=== PATIENT | female | born 1950 | race Caucasian/White ===

== ENCOUNTER → 2016-05-10 | Outpatient (CLI) | payer BC ==
[~2016-05-10] MED LIST: CHOL1000 PO; CINN1CAP2 PO; GLC/500 PO; LSN/10125 PO; MELO7.5T5 PO; MULT-190 PO; PRAV20TA PO
== END | disposition home or self-care (01) ==
LOC: C.PAPS 11:39
PROVIDERS: ATTEND Obstetrics & Gynecology
DX: Z12.4 Encounter for screening for malignant neoplasm of cervix (principal)

== ENCOUNTER → 2016-05-16 | Outpatient (CLI) | payer BC ==
[2016-05-16 12:36] LABS: AST/SGOT 12 U/L (15-37); BLOOD UREA NITROGEN 16 mg/dl (7-18); BUN/CREATININE RATIO 18.8 (10-20); CALCIUM 8.8 mg/dl (8.5-10.1); CARBON DIOXIDE 30 mmol/L (21-32); CHLORIDE 103 mmol/L (98-107); CHOLESTEROL 180 mg/dl (0-200); CREATININE 0.85 mg/dl (0.60-1.20); GLUCOSE 105 mg/dl (70-99); SODIUM 140 mmol/L (136-145)
[2016-05-16 12:38] LABS: ALB/GLOB RATIO 1.1 (0.9-2); ALKALINE PHOSPHATASE 64 U/L (45-117); ALT/SGPT 25 U/L (12-78); CHOLESTEROL/HDL RATIO 2.3; HDL CHOLESTEROL 77 mg/dl; LDL CHOLESTEROL CALCULATED 84 mg/dl; TRIGLYCERIDES 97 mg/dl (0-150); VERY LOW DENSITY LIPOPROT CALC 19 mg/dl
== END | disposition home or self-care (01) ==
LOC: C.LABBFT 08:24
PROVIDERS: ATTEND Nurse Practitioner
DX: E78.5 Hyperlipidemia, unspecified (principal)

== ENCOUNTER → 2016-09-23 | Outpatient (CLI) | payer BC ==
--- NOTE | 2016-09-24 13:53 | MAMMOGRAPHY REPORT ---
BILATERAL DIGITAL SCREENING MAMMOGRAM TOMOSYNTHESIS WITH CAD: 09/23/2016 CLINICAL HISTORY: Routine screening. Patient has no complaints. TECHNIQUE: Breast tomosynthesis in addition to standard 2D mammography was performed. Current study was also evaluated with a Computer Aided Detection (CAD) system. COMPARISON: Comparison is made to exams dated: 09/22/2015 mammogram, 09/20/2014 mammogram, 09/20/2013 mamm ogram, 03/19/2013 mammogram, 03/02/2013 mammogram, and 02/27/2012 mammogram - [facility]. BREAST COMPOSITION: The tissue of both breasts is heterogeneously dense, which may obscure small mas ses. FINDINGS: There is a possible 7 mm mass in the upper outer posterior right breast, near the fatglan dular interface, for which additional spot compression tomosynthesis views and possible ultrasound ar e recommended. A possible cluster of punctate microcalcifications in the 2:00 to 3:00 anterior right breast, for which additional spot magnification views are recommended. No other suspicious mass, architectural distortion or cluster of microcalcifications is seen bilstephaniaa janet. IMPRESSION: ACR BI-RADS CATEGORY 0: INCOMPLETE EVALUATION: NEED ADDITIONAL IMAGING EVALUATION The possible 7 mm mass in the upper outer posterior right breast, and possible cluster of microcalcif ications in the 2:00 to 3:00 anterior right breast need additional imaging evaluation. The patient will be called to schedule an appointment. Approximately 10% of breast cancers are not detected with mammography. A negative mammographic report should not delay biopsy if a clinically suggestive mass is present. Genie Winslow M.D. ay/:09/23/2016 16:37:22 Product Development Actuary: Meagan BECKFORD(Margaret)(M), [facility] letter sent: Addl Imaging 0 BI-RADS Code: ACR BI-RADS Category 0: Incomplete Evaluation: Need Additional Imaging Evaluation
== END | disposition home or self-care (01) ==
LOC: C.MAMM 13:58
PROVIDERS: ATTEND Obstetrics & Gynecology
DX: Z12.31 Encounter for screening mammogram for malignant neoplasm of breast (principal); R92.8 Other abnormal and inconclusive findings on diagnostic imaging of breast

== ENCOUNTER → 2016-10-02 | Outpatient (CLI) | payer BC ==
--- NOTE | 2016-10-02 15:44 | MAMMOGRAPHY REPORT ---
UNILATERAL RIGHT DIGITAL DIAGNOSTIC MAMMOGRAM TOMOSYNTHESIS: 10/02/2016 CLINICAL HISTORY: 66-year-old woman called back from screening mammography for possible clustered zana rocalcifications in the medial right breast, and a nodular asymmetry in the upper outer posterior rig ht breast. TECHNIQUE: Spot compression tomosynthesis CC and MLO views of the right breast; spot magnification CC and ML views of the right breast were obtained. COMPARISON: Comparison is made to exams dated: 09/23/2016 mammogram, 09/22/2015 mammogram, 05/25/2015 ul trasound, 05/25/2015 mammogram, 09/20/2014 mammogram, and 03/23/2014 mammogram - [facility]. BREAST COMPOSITION: The tissue of the right breast is heterogeneously dense, which may obscure small masses. FINDINGS: Spot magnification views of the right breast demonstrate a very faint cluster of amorphous microcalcifications in the upper inner anterior breast measuring approximately 16 x 12 x 6 mm. This appears new compared to prior mammograms and is indeterminate, warranting definitive characterizatio n with a stereotactic guided biopsy. On the spot magnification views both medially and laterally in the right breast, there are a few other scattered punctate microcalcifications. Another possible sma ll grouping of microcalcifications in the posterior lateral and superior breast, near a nodular asymm etry described on the screening mammogram. Therefore further evaluation with ultrasound was performe d in the right upper outer quadrant. The spot compression views obtained for this nodular asymmetry demonstrate partial effacement, and the area is actually less conspicuous compared to the screening m ammogram, particularly on the spot compression MLO view. Targeted ultrasound was performed in the right upper outer quadrant. In the 10:00 axis, 3 cm from th e nipple, there is a hypoechoic solid mass measuring 8.5 x 7.3 x 8.3 mm. A few internal punctate ref lectors are identified that may represent microcalcifications. However given the sonographic locatio n, it is unclear if this correlates with the original nodular asymmetry seen mammographically, althou gh no other solid or cystic mass was identified throughout the right upper outer quadrant on ultrasou nd. This mass is indeterminate, warranting further evaluation with an ultrasound-guided core needle biopsy. IMPRESSION: ACR BI-RADS CATEGORY 4B: INTERMEDIATE SUSPICION FOR MALIGNANCY 1. Right breast ultrasound guided core needle biopsy is recommended for an indeterminate solid 8.5 m m mass in the 10:00 axis. Correlation with postprocedure mammograms is recommended to assess for winsome mographicsonographic correlation with the nodular asymmetry. 2. Stereotactic guided biopsy is recommended for a 16 mm cluster of amorphous microcalcifications in the upper inner anterior right breast. 3. Pending pathology results, if there is no mammographicsonographic correlation with the nodular a symmetry in the upper outer posterior breast, additional MRI imaging may be needed. These results and recommendations were discussed with the patient at the time of the exam. She tenta tively scheduled the right breast biopsies prior to leaving our department. Approximately 10% of breast cancers are not detected with mammography. A negative mammographic report should not delay biopsy if a clinically suggestive mass is present. Genie Winslow M.D. ay/:10/02/2016 14:07:16 Medical Secretary: Marilyn Escalona, [facility] letter sent: Abnormal 4/5 BI-RADS Code: ACR BI-RADS Category 4B: Intermediate Suspicion For Malignancy
== END | disposition home or self-care (01) ==
LOC: C.MAMM 08:46
PROVIDERS: ATTEND Obstetrics & Gynecology
DX: R92.0 Mammographic microcalcification found on diagnostic imaging of breast (principal); N63 Unspecified lump in breast

== ENCOUNTER → 2016-10-10 | Outpatient (CLI) | payer BC ==
--- NOTE | 2016-10-10 14:36 | Discharge Instructions ---
Discharge Instructions Procedure Procedure Date: Oct 10, 2016. Reason for visit: Rt Calcs/ Rt Mass. Discharge Discharge Date: Oct 10, 2016. Discharge Diagnosis: post right breast stereotactic guided biopsy and ultrasound guided core biopsy Instructions Activity Recommendations: Additional Limitations (see below) Return to School/Work: no limitations Recommended Home Diet: No Limitations Provider Instructions: ACTIVITY RECOMMENDATIONS: * No lifting, pushing, pulling or exercising the affected side for three days. RETURN TO SCHOOL/WORK: * You may return to work/school after the procedure, but do not perform any strenuous activities for 24 to 48 hours. MEDICATIONS: * Tylenol (two 325 mg) every four to six hours if needed for mild pain (if not allergic to Tylenol), for the first 1-2 days. If still having pain at biopsy site may take ibuprofen days 3-on. DIET: * Resume previous diet. SPECIAL CARE INSTRUCTIONS: * Keep biopsy site dry for 24 hours. May shower after 24 hours, but do not soak (bathe) incision. * May remove Tegaderm (plastic patch) tomorrow AFTER showering. * Leave the steri-strips on for one week. Allow the steri-strips to fall off by themselves. If not off after one week, you may remove them. You may place a Bandaid crosswise over the strips, if desired. * Apply ice 10 minutes on and 10 minutes off as needed. * Wear a bra at bedtime to sleep more comfortably for 2-3 days. * Your referring physician should have the results after approximately 5 to 7 business days. * Call for unusual bleeding, fever, drainage, etc or if you have any questions call [phone] during normal business hours or after hours call Dr Winslow, . FOLLOW UP VISIT: Follow-up with Referring Physician as scheduled. Allergies Coded Allergies: Naproxen (Verified Allergy, Mild, RASH, 11/30/15) Tej Pace Recommendations: Call your doctor if: * Temperature above 101 degrees * Pain not relieved by pain medicine ordered * There is increased drainage or redness from any incision * You have any unanswered questions or concerns. Your Doctors Instructions noted above were prepared by provider Genie Winslow. Patient Signature Section: Patient Instructions Signature Page Sabiha Rosario Patient (or Guardian) Signature/Date: I have read and understand the instructions given to me by my caregivers. Caregiver/RN/Doctor Signature/Date: The above-named patient and/or guardian has received patient instructions on this date. + Original Patient Signature Page (only) stays with chart. Please make copy for patient.
--- NOTE | 2016-10-10 16:01 | MAMMOGRAPHY REPORT ---
UNILATERAL RIGHT DIGITAL DIAGNOSTIC MAMMOGRAM TOMOSYNTHESIS: 10/10/2016 CLINICAL HISTORY: Status post right breast stereotactic guided biopsy of faint clustered microcalcifi cations in the upper inner anterior breast, and ultrasound-guided core biopsy of a solid mass in the 10:00 breast. Please refer to reports from right breast ultrasound guided core biopsy and right breast stereotactic biopsy performed at the same time for full detail. IMPRESSION: POST PROCEDURE IMAGING FOR MARKER PLACEMENT Please refer to reports from right breast ultrasound guided core biopsy and right breast stereotactic biopsy performed at the same time for full detail. Approximately 10% of breast cancers are not detected with mammography. A negative mammographic report should not delay biopsy if a clinically suggestive mass is present. Genie Winslow M.D. ay/:10/10/2016 14:37:48 Nursing Agency Manager: Meagan KHAN)(Sj), [facility] BI-RADS Code: Post Procedure Imaging For Marker Placement
--- NOTE | 2016-10-11 08:09 | MAMMOGRAPHY REPORT ---
ULTRASOUND GUIDED BIOPSY RIGHT BREAST: 10/10/2016 CLINICAL HISTORY: Indeterminate hypoechoic solid mass in the 10:00 right breast, 3 cm from the nipple . Patient presents for ultrasound-guided core biopsy. COMPARISON: Comparison is made to exams dated: 10/02/2016 ultrasound, 10/02/2016 mammogram, 09/23/2016 mammogram, 09/22/2015 mammogram, 05/25/2015 ultrasound, and 05/25/2015 mammogram - [facility]. PATIENT CONSENT: The procedure, risks and benefits were discussed with the patient and informed conse nt was obtained both verbally and in writing. Specific risks to this procedure include: bleeding, in fection, puncture of adjacent structure, nontarget biopsy, sampling error, pain, metal allergy and me dication reaction. PROCEDURE DESCRIPTION: A time out was performed and the right breast was agreed as the site of biopsy . The skin was prepped and draped in the usual sterile fashion. The solid mass in the 10:00 breast wa s chosen as the target for biopsy. Subcutaneous and intraparenchymal 1% buffered lidocaine, with and without epinephrine, was administered as local anesthesia. A skin incision was made. Through the inc ision, 7 samples were taken with a 14 gauge Achieve biopsy device. A ribbon shaped metallic marker wa s placed at the biopsy site. Hemostasis was achieved after manual compression. The patient tolerated the procedure well and there was no immediate complication. [facility]. Post procedure right CC and ML 2-D and tomosynthesis images were obtained. A new ribbon-shaped metal lic biopsy marker is seen in the 10:00 middle one third of the right breast. It is difficult to appr eciate a corresponding mass on the mammograms, given the heterogeneous patchy glandular tissue. Neve rtheless, no significant postbiopsy hematoma is seen. A dumbbell-shaped marker is seen in the upper inner anterior right breast denoting the site of stereotactic biopsy performed just prior to the ultr asound guided biopsy. Neither biopsy marker clips align with the nodular asymmetry and few associate d calcifications in the upper outer far posterior right breast and pending pathology results, further workup will be needed regarding this nodular asymmetry and microcalcification. IMPRESSION: ULTRASOUND GUIDED BIOPSY 1. Status post ultrasound-guided core biopsy of an indeterminate solid mass in the 10:00 right breas t, with ribbon-shaped biopsy marker clip placed at the site. 2. The mass identified in the 10:00 right breast on ultrasound is not well seen mammographically. I t does not align with the nodular asymmetry and few associated calcification in the upper outer far p osterior right breast described on the screening mammogram report. This finding remains indeterminat e and further recommendations will be made (possibly MRI versus an additional biopsy) after pathology results are available. The patient will receive notification of the biopsy results from her referring physician. Genie Winslow M.D. ay/:10/10/2016 17:03:00 Telephone Station Repairer: Meagan KHAN)(Sj), [facility]
--- NOTE | 2016-10-11 08:09 | MAMMOGRAPHY REPORT ---
THIS REPORT HAS BEEN AMENDED. STEREOTACTIC GUIDED BIOPSY RIGHT BREAST: 10/10/2016 CLINICAL HISTORY: Faint clustered microcalcifications in the upper inner anterior right breast. Karyn ent presents for stereotactic biopsy. An ultrasound guided core biopsy was also performed during the same appointment for an indeterminate solid mass in the 10:00 right breast. COMPARISON: Comparison is made to exams dated: 10/02/2016 ultrasound, 10/02/2016 mammogram, 09/23/2016 mammogram, 09/22/2015 mammogram, 05/25/2015 mammogram, and 09/20/2014 mammogram - [facility]. PATIENT CONSENT: After explaining the risks, benefits and alternatives of the procedure to the galilea t, informed consent was obtained both verbally and in writing. Specific risks include: Bleeding, inf ection, puncture of adjacent structure, pain, nontarget biopsy, sampling error, metal allergy and med ication reaction. PROCEDURE DESCRIPTION: A time-out was performed and the right breast was confirmed as the site of bio psy. The patient was placed prone on the stereotactic biopsy table and the breast was placed in CC fr om above compression. A clay molder image was obtained that demonstrated the clustered microcalcifications in question. They are amenable to sterotactic biopsy. Then +15 and -15 stereo pair images were obt ained. The calcifications were targeted utilizing the coordinates obtained by the computer. The skin was prepped with Betadine. 1% Lidocaine with and without epinipherine was administered as local anes thesia. A small skin incision was made. Through the incision, the needle was inserted to the depth d etermined by the computer. 6 samples were obtained using a Auxmoneyiva 9-gauge vacuum-assisted biopsy device. The specimen radiograph demonstrated several solar sales representative and assessor microcalcifications, therefore, a metallic marker was placed at the biopsy site. There was no immediate complication. Hemostasis was achieved after several minutes of manual compression. The samples were sent to pathology in two appr opriately labeled containers, "with calcifications" and "without calcifications". All of the samples were obtained from the same single biopsy site. Post procedure right CC and ML 2-D and tomosynthesis images were obtained. A dumbbell-shaped marker is seen in the upper inner anterior right breast denoting the site of stereotactic biopsy. A ribbon- shaped clip is seen in the 10:00 middle one third of the right breast denoting the site of ultrasound -guided core biopsy. Neither biopsy marker clip aligns with the nodular asymmetry and few associated calcifications in the upper outer far posterior right breast and pending pathology results, further workup will be needed regarding this mammographic finding. IMPRESSION: STEREOTACTIC GUIDED BIOPSY 1. Status post stereotactic guided biopsy of a faint cluster of microcalcifications in the upper inn er anterior right breast. 2. An ultrasound core biopsy was performed at the same time in the 10:00 right breast of an indeterm inate solid mass. 3. Further recommendations will be made regarding a nodular asymmetry and associated microcalcificat ion in the upper outer far posterior right breast once pathology results are available. The patient will receive notification of the biopsy results from her referring physician. Genie Winslow M.D. ay/:10/10/2016 17:05:52 Senior Microstrategy Developer: Meagan KHAN)(Sj), [facility] AMENDMENT: 10/16/2016 Genie Winslow M.D. Pathology results from the ultrasound-guided core biopsy of a solid mass in the 10:00 right breast latvian elded invasive ductal carcinoma, Valerie grade 3 of 3. Estrogen and progesterone receptor negativ e, HER-2/tasneem indeterminate. The pathology results are concordant with the imaging appearance. 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 Pathology results are concordant with the imaging appearanc e from the stereotactic biopsy as well. In the comment section of the pathology report, both the inv asive carcinoma mass in the 10:00 axis and the in situ carcinomas in the upper inner anterior breast, which are located in different quadrants, show apocrine differentiation and significant necrosis sug gesting they are part of the same process. These findings are compatible with multicentric disease. Given the subtle nature of the patient's biopsy proven carcinoma in the 10:00 axis and the faint natu re of the microcalcifications as well as another nodular asymmetry in the upper outer posterior right breast which was not identified on ultrasound and remains suspicious given these pathology results, the patient may have more widespread disease then identified mammographically. Therefore, further ev aluation with a bilateral breast MRI is recommended to fully assess right breast extent of disease an d also to exclude the possibility of contralateral disease.
== END | disposition home or self-care (01) ==
LOC: C.MAMM 13:32
PROVIDERS: ATTEND Obstetrics & Gynecology
DX: R92.0 Mammographic microcalcification found on diagnostic imaging of breast (principal); N63 Unspecified lump in breast; D05.81 Other specified type of carcinoma in situ of right breast

== ENCOUNTER → 2016-11-05 | Outpatient (CLI) | payer BC ==
[~2016-11-05] MED LIST changes: +GADAVIST IV PRN
--- NOTE | 2016-11-06 16:02 | MAMMOGRAPHY REPORT ---
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 Patient presents to assess extent of disease and rule out contralateral d isease. COMPARISON: Comparison is made to exams dated: 10/10/2016 ultrasound biopsy, 10/10/2016 mammogram, 09/15 stereotactic biopsy, 10/02/2016 ultrasound, 10/02/2016 mammogram, and 09/23/2016 mammogram - [facility]. TECHNIQUE: Using a 1.5 Danyell magnet and dedicated breast coil, multisequence axial images were obtain ed through the breasts. After uneventful IV administration of 7.8 mL of Gadavist, dynamic multiphase contrast-enhanced axial images, and sagittal postcontrast were obtained. Temporal subtraction axial images and 3-D MIP images are provided. Everything was then reviewed on a 3-D workstation, i[employer]ing. FINDINGS: Right breast: There is no significant background parenchymal enhancement. There are 2 dominant enhan cing masses in the right breast upper outer quadrant, with clumped non-mass enhancement extending thr oughout the quadrant between the 2 masses. The first mass with irregular borders and mixed plateau a nd persisting kinetics is located in the 10:00 middle one third of the breast, 4 cm distal to the nip ple. It measures 12 x 9 x 12 mm and contains an internal biopsy marker clip. This denotes the site of the right 10:00 mass biopsy that yielded carcinoma. There is clumped non-mass enhancement extendi ng posterior to this mass for approximately 7 cm to the level of a second irregular mass with mixed p lateau and washout kinetics. This second slightly smaller mass measures 6 x 9 x 6 mm is located in t he 9:00 posterior breast, 11 cm distal to the nipple, and is highly suspicious for malignancy. This likely correlates with the original mammographic nodular asymmetry seen on the screening mammogram da hawa 09/23/2016, for which no sonographic correlate was identified. The clumped non-mass enhancement which extends between the 2 masses measures approximately 7 cm in AP by 4.5 cm in craniocaudal dimens ion and occupies most of the middle to posterior right upper outer quadrant. This is suspicious for DCIS. There are other discrete areas of clumped non-mass enhancement within the right breast, in the central versus 6:00 middle one third of the breast measuring 23 x 14 x 12 mm (sagittal page 94/128, axial page 77/1:30), and minimal clumped non-mass enhancement surrounding a second metallic biopsy ma rker clip located in the 2:00 anterior right breast, denoting the site of the stereotactic guided bio psy which yielded DCIS. These findings are compatible with multicentric disease. There is hyperinte nse T2 signal within the skin at the site of the stereotactic biopsy, likely representing postbiopsy change. There is no other focal skin abnormality or skin thickening. The retromammary fat is intact . There are a few more lymph nodes in the right axilla when compared to the left, but they maintain a normal morphology and have cortical thicknesses within the upper limits of normal, approximately 3 mm. No definite suspicious right axillary lymphadenopathy. No suspicious internal mammary or subpec stacy lymphadenopathy. Left breast: No significant background parenchymal enhancement. No suspicious enhancing mass, no non -mass enhancement or suspicious kinetics identified in the left breast. No skin thickening or nipple retraction. The retromammary fat is intact. No suspicious left axillary lymphadenopathy. Incidental note is made of a nonenhancing oval T2 hyperintense 11 x 6 mm cyst in the anterior aspect of the visualized liver. IMPRESSION: ACR BI-RADS CATEGORY 6: KNOWN BIOPSY PROVEN MALIGNANCY 1. MRI evidence of multicentric disease within the right breast. There are 2 dominant irregular enh ancing masses within the 10:00 middle one third and 9:00 posterior breast, measuring 12 and 9 mm, of which the biopsied mass in the 10:00 axis represents biopsy-proven carcinoma. Multiple areas of clum ped non-mass enhancement mostly concentrated between the 2 dominant masses in the upper outer quadran t, but also in other areas of the breast including the 2:00 anterior axis and central/6:00 breast, barron spicious for multicentric DCIS, given that DCIS was identified at the biopsy site in the 2:00 anterio r aspect. 2. No nipple retraction, focal skin thickening/enhancement to suggest skin involvement or pectoralis muscle involvement is identified. 3. No suspicious findings or evidence of malignancy in the left breast. 4. Slightly increased number of right axillary lymph nodes compared to the left, which are less than a centimeter in size and maintain cortices within the range of normal for thickness. No definitive MRI evidence of right axillary lymphadenopathy. The patient will receive written notification of the results. Genie Winslow M.D. ay/:11/05/2016 22:16:28 Paper Stripper: underwater hunter, [facility] letter sent: Birad 6 BI-RADS Code: ACR BI-RADS Category 6: Known Biopsy Proven Malignancy
== END | disposition home or self-care (01) ==
LOC: C.MRI 13:12
PROVIDERS: ATTEND Surgery
DX: C50.811 Malignant neoplasm of overlapping sites of right female breast (principal)

== ENCOUNTER → 2016-11-05 | Outpatient (CLI) | payer BC ==
[~2016-11-05] MED LIST changes: -GADAVIST IV PRN
[2016-11-05 12:07] LABS: HEMATOCRIT 38.3 % (37-47); MEAN CELL VOLUME 85.3 fL (80-100); MEAN CORPUSCULAR HGB CONC 33.9 g/dl (32-36); MEAN PLATELET VOLUME 11.4 fL (7.4-10.4); PLATELET COUNT 170 K/uL (130-400); RED BLOOD COUNT 4.49 M/uL (4.2-5.4); WHITE BLOOD COUNT 6.21 K/uL (4.8-10.8)
[2016-11-05 12:15] LABS: BLOOD UREA NITROGEN 15 mg/dl (7-18); BUN/CREATININE RATIO 20.3 (10-20); CALCIUM 9.1 mg/dl (8.5-10.1); CARBON DIOXIDE 29 mmol/L (21-32); CHLORIDE 103 mmol/L (98-107); CREATININE 0.76 mg/dl (0.60-1.20); GLUCOSE 92 mg/dl (70-99); POTASSIUM 4.1 mmol/L (3.5-5.1); SODIUM 138 mmol/L (136-145)
== END | disposition home or self-care (01) ==
LOC: C.CPL 10:50
PROVIDERS: ATTEND Surgery
DX: Z01.810 Encounter for preprocedural cardiovascular examination (principal); C50.811 Malignant neoplasm of overlapping sites of right female breast

== ENCOUNTER → 2016-11-14 | Outpatient (CLI) | payer BC ==
[2016-11-14 12:05] LABS: MEAN CELL VOLUME 86.8 fL (80-100); MEAN CORPUSCULAR HGB CONC 33.4 g/dl (32-36); PLATELET COUNT 155 K/uL (130-400); RED BLOOD COUNT 4.38 M/uL (4.2-5.4); WHITE BLOOD COUNT 5.55 K/uL (4.8-10.8)
[2016-11-14 12:06] LABS: MEAN PLATELET VOLUME 11.5 fL (7.4-10.4)
[2016-11-14 12:19] LABS: ALT/SGPT 22 U/L (12-78); BLOOD UREA NITROGEN 17 mg/dl (7-18); BUN/CREATININE RATIO 21.1 (10-20); CALCIUM 9.2 mg/dl (8.5-10.1); CARBON DIOXIDE 31 mmol/L (21-32); CHLORIDE 104 mmol/L (98-107); CHOLESTEROL 173 mg/dl (0-200); GLUCOSE 96 mg/dl (70-99); POTASSIUM 3.9 mmol/L (3.5-5.1); SODIUM 138 mmol/L (136-145)
[2016-11-14 12:22] LABS: ALB/GLOB RATIO 1.1 (0.9-2); ALKALINE PHOSPHATASE 61 U/L (45-117); AST/SGOT 15 U/L (15-37); CHOLESTEROL/HDL RATIO 2.2; HDL CHOLESTEROL 78 mg/dl; LDL CHOLESTEROL CALCULATED 81 mg/dl; TRIGLYCERIDES 71 mg/dl (0-150); VERY LOW DENSITY LIPOPROT CALC 14 mg/dl
[2016-11-14 13:05] LABS: ESTIMATED AVERAGE GLUCOSE 134 mg/dl; HA1C FLAG Normal (Normal)
== END | disposition home or self-care (01) ==
LOC: C.LABBFT 07:29
PROVIDERS: ATTEND Nurse Practitioner
DX: R73.01 Impaired fasting glucose (principal); M85.80 Other specified disorders of bone density and structure, unspecified site; I10 Essential (primary) hypertension

== ENCOUNTER → 2017-05-14 | Outpatient (CLI) | payer BC | END | disposition home or self-care (01) | LOC: C.PAPS 12:05 | PROVIDERS: ATTEND Family Medicine | DX: Z01.419 Encounter for gynecological examination (general) (routine) without abnormal findings (principal) ==

== ENCOUNTER → 2017-06-19 | Outpatient (CLI) | payer BC | END | disposition home or self-care (01) | LOC: C.LABBFT 07:38 | PROVIDERS: ATTEND Nurse Practitioner | DX: M85.80 Other specified disorders of bone density and structure, unspecified site (principal); R73.01 Impaired fasting glucose ==

== ENCOUNTER → 2017-10-23 | Outpatient (CLI) | payer BC ==
--- NOTE | 2017-10-23 12:04 | DIAGNOSTIC IMAGING REPORT ---
ADDENDUM History: Question palpable abnormality within the right neck Electronically signed by: Matthew Arenas M.D. 10/23/2017 12:07 PM Dictated Date/Time: 10/23/2017 12:06 PM ORIGINAL REPORT NECK ULTRASOUND HISTORY: Right-sided neck pain. COMPARISON: None. FINDINGS: No masses or fluid collections within the right side of the neck. No cervical lymphadenopathy identified on the right. The thyroid gland within normal limits. IMPRESSION: No sonographic abnormality within the right neck. Electronically signed by: Matthew Arenas M.D. 10/23/2017 12:02 PM Dictated Date/Time: 10/23/2017 12:01 PM
== END | disposition home or self-care (01) ==
LOC: C.ULTR 09:53
PROVIDERS: ATTEND Physician Assistant
DX: C50.411 Malignant neoplasm of upper-outer quadrant of right female breast (principal); Z17.1 Estrogen receptor negative status [ER-]; R59.0 Localized enlarged lymph nodes

== ENCOUNTER 2021-09-14 08:17 | Observation (INO) ==
--- NOTE | 2021-08-17 12:59 | PAT Medication Instructions ---
Medication Instructions Date of Service August 17, 2021 Home Medications Medication Instructions Recorded blood sugar diagnostic (OneTouch #100 ea 12/03/18 Ultra Blue Test Strip) azelastine 137 mcg (0.1 %) nasal 2 spray INTRANASAL DAILY #30 ml 04/14/20 spray aerosol lisinopril 10 1 tab PO QAM #90 tab 05/23/21 mg-hydrochlorothiazide 12.5 mg tablet metformin 500 mg tablet 500 mg PO BID #180 tab 05/23/21 pravastatin 20 mg tablet 20 mg PO QPM #90 tab 05/23/21 Wheeled Walker #1 ea 07/11/21 cholecalciferol (vitamin D3) 25 mcg (1,000 unit) capsule 1,000 units PO QAM cinnamon bark 500 mg capsule 500 mg PO QAM fluticasone propionate 50 mcg/actuation nasal spray,suspension 2 sprays INTRANASAL DAILY PRN vit C,E,zinc,copper-[id number] 250 mg-lutein 5 mg-zeaxanthin 1 mg capsule (Ocuvite Adult 50 Plus) 1 cap PO BID dextran 70-hypromellose eye drops in a dropperette (Artificial Tears (PF)) 1 drp OPR UD PRN multivitamin 1 tab PO QAM azelastine 137 mcg (0.1 %) nasal spray aerosol 2 spray INTRANASAL DAILY lisinopril 10 mg-hydrochlorothiazide 12.5 mg tablet 1 tab PO QAM metformin 500 mg tablet 500 mg PO BID pravastatin 20 mg tablet 20 mg PO QPM diphenhydramine HCl 25 mg tablet (Benadryl Allergy) 25 mg PO UD PRN metoprolol succinate 50 mg tablet,extended release 24 hr 50 mg PO QAM multivitamin with minerals (Hair,Skin and Nails) 1 tab PO QAM STOP taking 2 weeks before surgery cinnamon bark 500 mg capsule 500 mg PO QAM vit C,E,zinc,copper-[id number] 250 mg-lutein 5 mg-zeaxanthin 1 mg capsule (Ocuvite Adult 50 Plus) 1 cap PO BID multivitamin with minerals (Hair,Skin and Nails) 1 tab PO QAM DO NOT take the morning of surgery cholecalciferol (vitamin D3) 25 mcg (1,000 unit) capsule 1,000 units PO QAM multivitamin 1 tab PO QAM lisinopril 10 mg-hydrochlorothiazide 12.5 mg tablet 1 tab PO QAM metformin 500 mg tablet 500 mg PO BID diphenhydramine HCl 25 mg tablet (Benadryl Allergy) 25 mg PO UD PRN (if needed) Take morning of surgery With a small sip of water, OTHERWISE NOTHING TO EAT OR DRINK AFTER MIDNIGHT: fluticasone propionate 50 mcg/actuation nasal spray,suspension 2 sprays INTRANASAL DAILY PRN (if needed) dextran 70-hypromellose eye drops in a dropperette (Artificial Tears (PF)) 1 drp OPR UD PRN (if needed) azelastine 137 mcg (0.1 %) nasal spray aerosol 2 spray INTRANASAL DAILY metoprolol succinate 50 mg tablet,extended release 24 hr 50 mg PO QAM Take evening before surgery dextran 70-hypromellose eye drops in a dropperette (Artificial Tears (PF)) 1 drp OPR UD PRN (if needed) metformin 500 mg tablet 500 mg PO BID pravastatin 20 mg tablet 20 mg PO QPM diphenhydramine HCl 25 mg tablet (Benadryl Allergy) 25 mg PO UD PRN (if needed) Other Notes If you have any questions please call us at [phone] or [phone] or [phone] or [phone]
--- NOTE | 2021-08-20 08:26 | Anesthesiology Consultation ---
Date of Service August 20, 2021 Assessment & Plan (1) Encounter for pre-operative examination: - check BSG am DOS. - Case discussed with Dr. Montaño including detailed discussion of holter monitor report and he advised patient is acceptable to proceed with surgery and does not need additional evaluation or testing. - cardio 05/17/21 [place]: "...Frequent unifocal PVCs: With initial treatment of her PVCs with beta-blockade she had symptomatic improvement, although she still has them and they are bothersome to her. We do have a Holter monitor that was just taken off today which will quantify them but based on her symptoms and her electrocardiogram from today she still has frequent symptomatic PVCs...believe these are from the right ventricular outflow tract and we could consider ablation but she is on very low-dose beta-blockade and is willing to go up on the dose. I am going to increase the dose to 50 mg daily. Hypertension: Her blood pressure has been well controlled on her current regimen...follow-up in about 6 months..." - COVID screening: Per assessment on 08/20/2021: Travel screen negative, no known COVID-19 positive contacts or current COVID-19 related symptoms in past 2 weeks. Pt vaccinated. Surgeon arranging preop COVID testing, scheduled 09/12/2021. Awaiting results. Chart Review Chart Review: Acceptable Risk for Surgery and Patient seen in Pre Admission Te sting Teaching & Discussion Pre-Anesthesia Teaching/Discussion Notes: Instructed NPO after midnight before surgery, except medications with 15 cc of water. Medication instructions provided according to the PAT guidelines. History Surgery Operation Date: 09/14/21 08:50 Proposed Procedures p Right Total Knee Arthroplasty - Lamin Orlando DO Height/Weight Height: 5 ft 8 in Weight: 84.5 kg Allergies Allergy/AdvReac Type Severity Reaction Status Date / Time naproxen Allergy Mild RASH Verified 08/16/21 11:28 Medications Home Medications Medication Instructions Recorded Confirmed Last Taken cholecalciferol (vitamin D3) 25 1,000 units PO QAM cap 11/11/18 08/16/21 12/20/18 mcg (1,000 unit) capsule cinnamon bark 500 mg capsule 500 mg PO QAM cap 12/01/18 08/16/21 12/20/18 fluticasone propionate 50 2 sprays INTRANASAL DAILY PRN gm 12/01/18 08/16/21 12/20/18 mcg/actuation nasal spray,suspension vit C,E,zinc,copper-[id number] 250 1 cap PO BID 12/01/18 08/16/21 12/20/18 mg-lutein 5 mg-zeaxanthin 1 mg capsule (Ocuvite Adult 50 Plus) blood sugar diagnostic (OneTouch #100 ea 12/03/18 07/24/21 Unknown Ultra Blue Test Strip) dextran 70-hypromellose eye drops 1 drp OPR UD PRN 12/08/18 08/16/21 12/20/18 in a dropperette (Artificial Tears (PF)) multivitamin 1 tab PO QAM 12/08/18 08/16/21 12/20/18 azelastine 137 mcg (0.1 %) nasal 2 spray INTRANASAL DAILY #30 ml 04/14/20 07/24/21 Unknown spray aerosol lisinopril 10 1 tab PO QAM #90 tab 05/23/21 08/16/21 Unknown mg-hydrochlorothiazide 12.5 mg tablet metformin 500 mg tablet 500 mg PO BID #180 tab 05/23/21 08/16/21 Unknown pravastatin 20 mg tablet 20 mg PO QPM #90 tab 05/23/21 08/16/21 Unknown Wheeled Walker #1 ea 07/11/21 07/24/21 Unknown diphenhydramine HCl 25 mg tablet 25 mg PO UD PRN 08/16/21 08/16/21 Unknown (Benadryl Allergy) metoprolol succinate 50 mg 50 mg PO QAM 08/16/21 08/16/21 Unknown tablet,extended release 24 hr multivitamin with minerals 1 tab PO QAM 08/16/21 08/16/21 Unknown (Hair,Skin and Nails) Past Medical History Medical History (Updated 08/21/21 @ 08:34 by Delia Santos PA-C) Diabetes mellitus, type 2 NIDDM Frequent PVCs Reason for metoprolol, chronic palpitations, denies change or worsening Hearing deficit Right ear History of malignant neoplasm of right breast s/p surgery + chemo (2016)-limb restriction of right upper extremity Hyperlipidemia Hypertension controlled, stable per pt Limb alert care status right upper extremity Macular pucker, left eye Rosacea Skin cancer BCC Patient denies h/o stroke, seizures, heart attack, heart failure, blood clots or blood transfusions. Exercise / Class Metabolic Activity II 4-5 Yardwork/Stairs/Walk up hill (denies CP or SOB with 1 FOS) Past Family History Family History Aunt Stroke maternal Diabetes maternal Father Lung cancer Family/Other Asthma maternal cousin FHx: deafness or hearing loss Environmental allergies Sinus disorder Hypertension Grandmother No problems noted. Mother Hypertension Myocardial infarction Unknown No problems noted. Grandmother (Maternal) Stroke Denies family history of Ovarian cancer Prostate cancer Breast cancer Colorectal cancer Past Surgical History Surgical History (Updated 08/20/21 @ 08:32 by Delia Santos PA-C) History of breast biopsy History of colonoscopy History of dilatation and curettage History of placement of ear tubes Right myringotomy tube (12/21/18): [place] [facility] [place] No issues noted per post-op anesthesia progress note. History of removal of Port-a-Cath 2016 History of surgical removal of skin lesion History of tonsillectomy and adenoidectomy S/P right mastectomy with lymph node removal [place] teeth extracted Past Anesthesia History Other (slow to wake after mastectomy; several family members slow to wake-went home same day) History of PONV No Hx of PONV and No Hx of Motion Sickness Social History Smoking Status: Never smoker Do You Dip or Chew Tobacco: No Hx Alcohol Use: Yes (on holidays, very rare) Alcohol type: wine alcohol intake frequency: holidays/special occasions only Hx Substance Use: No substance use type: does not use Review of Systems Snoring, denies witnessed apneas or sleep studies. Occasional reflux, managed with OTC antacid prn. Chronic, denies change or worsening. Occasional intermittent non-productive cough when experiencing sinus drainage. Patient denies chest pain, shortness of breath, dyspnea on exertion, fever or chills. Physical Exam Vital Signs Vitals BP 125/62 P 69 TEMP 98.6 SP02 97% on RA RESP 17 Physical Full cervical extension range of motion without pain TMD 3.5 finger breaths Mallampati Score 1 Dentition: intact, several caps-none in front, chipped front lower tooth; denies loose teeth, implants or bridges Lungs: normal respiratory effort. Clear throughout to auscultation, no adventitious breath sounds Cardiac: regular rate and rhythm, no murmurs noted Carotid arteries: negative bruit bilat Lab Results Anesthesia Preop Results Results Anesthesia Widget: WBC 7.68 K/uL (4.8-10.8) 08/20/21 Hgb 12.9 g/dL (12.0-16.0) 08/20/21 Hct 38.0 % (37-47) 08/20/21 Plt 195 K/uL (130-400) 08/20/21 Na 136 mmol/L (136-145) 08/20/21 K 4.6 mmol/L (3.5-5.1) 08/20/21 Cl 99 mmol/L (98-107) 08/20/21 CO2 31 mmol/L (21-32) 08/20/21 BUN 20 mg/dl (6-23) 08/20/21 Creat 0.90 mg/dl (0.6-1.2) 08/20/21 Glucose Level 111 mg/dl (70-99(Fasting)) H 08/20/21 PT 10.1 Seconds (9.0-12.0) 08/20/21 PTT 25.7 Seconds (21.0-31.0) 08/20/21 INR 0.9 (0.9-1.1) 08/20/21 HA1c 6.6 % (4.5-5.6) H 08/20/21 Blood Type A Positive 08/20/21 Antibody Screen NEGATIVE 08/20/21 Testing Electrocardiogram Date: 08/20/21 NSR, rate 65 bpm Chest X-Ray Date: 08/20/21 The cardiac silhouette is moderately enlarged. No pneumothorax, pleural effusion, airspace consolidation or overt pulmonary edema. Hyperinflation with diaphragmatic flattening. Mid thoracic dextroscoliosis. Degenerative changes of the shoulders and spine. IMPRESSION: Cardiomegaly without acute process Echocardiogram Date: 04/21/20 EF 65-70% No regional wall motion abnormalities No LVH Mildly dilated RV Mild RA dilation Mild mitral regurgitation Mild to moderate tricuspid regurgitation Type 2 diastolic dysfunction Other Testing Holter monitor 05/16/21 Sinus rhythm, HR min 54 bpm, av 67 bpm, max 110 bpm Isolated APDs and couplets, single nonsustained episode of VT noted Frequent VPDs and couplets, single nonsustained episode of SVT noted Ventricular arrhythmia comprised 18% of recorded beats
--- NOTE | 2021-09-13 12:09 | History & Physical Report ---
Date of Service September 13, 2021 Assessment & Plan (1) Osteoarthritis of right knee: We will proceed with a right total knee arthroplasty. Postoperatively she will be started on aspirin for DVT prophylaxis and kept overnight in the hospital for postoperative medical management. She plans to use energy physical therapy upon discharge. History of Present Illness Chief Complaint: Osteoarthritis of the right knee. Primary Care Provider: BRODERICK Hazel Sabiha is a pleasant 71-year-old female who I am been treating for bilateral knee pain for years. X-rays have been diagnostic for advanced osteoarthritis of the right knee. I have been giving her intraarticular injections. Unfortunately, the injections are not helping as much anymore. Her right knee pain is becoming worse. She is struggling more and more with the right knee. After failing conservative treatment, she has elected proceed with a right total knee arthroplasty. Allergies Allergy/AdvReac Type Severity Reaction Status Date / Time naproxen Allergy Mild RASH Verified 08/16/21 11:28 Home Medications Medication Instructions Recorded Confirmed Type cholecalciferol (vitamin D3) 25 1,000 units PO QAM cap 11/11/18 08/16/21 History mcg (1,000 unit) capsule cinnamon bark 500 mg capsule 500 mg PO QAM cap 12/01/18 08/16/21 History fluticasone propionate 50 2 sprays INTRANASAL DAILY PRN gm 12/01/18 08/16/21 History mcg/actuation nasal spray,suspension vit C,E,zinc,copper-[id number] 250 1 cap PO BID 12/01/18 08/16/21 History mg-lutein 5 mg-zeaxanthin 1 mg capsule (Ocuvite Adult 50 Plus) blood sugar diagnostic (OneTouch #100 ea 12/03/18 07/24/21 Rx Ultra Blue Test Strip) dextran 70-hypromellose eye drops 1 drp OPR UD PRN 12/08/18 08/16/21 History in a dropperette (Artificial Tears (PF)) multivitamin 1 tab PO QAM 12/08/18 08/16/21 History azelastine 137 mcg (0.1 %) nasal 2 spray INTRANASAL DAILY #30 ml 04/14/20 07/24/21 Rx spray aerosol lisinopril 10 1 tab PO QAM #90 tab 05/23/21 08/16/21 Rx mg-hydrochlorothiazide 12.5 mg tablet metformin 500 mg tablet 500 mg PO BID #180 tab 05/23/21 08/16/21 Rx pravastatin 20 mg tablet 20 mg PO QPM #90 tab 05/23/21 08/16/21 Rx Wheeled Walker #1 ea 07/11/21 07/24/21 Rx diphenhydramine HCl 25 mg tablet 25 mg PO UD PRN 08/16/21 08/16/21 History (Benadryl Allergy) metoprolol succinate 50 mg 50 mg PO QAM 08/16/21 08/16/21 History tablet,extended release 24 hr multivitamin with minerals 1 tab PO QAM 08/16/21 08/16/21 History (Hair,Skin and Nails) Past Med/Surg History Medical History Diabetes mellitus, type 2 NIDDM Frequent PVCs Reason for metoprolol, chronic palpitations, denies change or worsening Hearing deficit Right ear History of malignant neoplasm of right breast s/p surgery + chemo (2016)-limb restriction of right upper extremity Hyperlipidemia Hypertension controlled, stable per pt Limb alert care status right upper extremity Macular pucker, left eye Rosacea Skin cancer BCC Surgical History History of breast biopsy History of colonoscopy History of dilatation and curettage History of placement of ear tubes Right myringotomy tube (12/21/18): [place] [facility] [place] No issues noted per post-op anesthesia progress note. History of removal of Port-a-Cath 2016 History of surgical removal of skin lesion History of tonsillectomy and adenoidectomy S/P right mastectomy with lymph node removal [place] teeth extracted Family History Aunt Stroke maternal Diabetes maternal Father Lung cancer Family/Other Asthma maternal cousin FHx: deafness or hearing loss Environmental allergies Sinus disorder Hypertension Grandmother No problems noted. Mother Hypertension Myocardial infarction Unknown No problems noted. 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 Physical Exam On physical examination the right knee, she has a slight valgus deformity. She has tenderness palpation of the distal lateral femoral condyle and over the lateral joint line.. Constitutional WD/WN, vitals as above Eyes PERRL, conjunctivae normal, anicteric sclerae ENMT external ear and nose normal, oropharynx normal Neck trachea midline, no thyromegaly Respiratory normal respiratory effort Cardiovascular RRR, no murmur, no edema Gastrointestinal (Abdomen) normal bowel sounds, soft, nontender, no hepatosplenomegaly Psychiatric A+Ox3, euthymic affect Results & Data Results & Data Laboratory Results . Diagnostic Findings X-rays of the right knee do show advanced osteoarthritis with joint space narrowing mostly involving the lateral compartment. PG Care Time/CCT Total # of Minutes Spent Total Time Spent with Patient: Total time spent is greater than 50% in coordination of care (as documented) at patient's floor/unit and/or counseling patient: Coding Level of Care Code None Diagnoses Osteoarthritis of right knee M17.11
[~2021-09-14 08:17] MED LIST changes: +ACETAMINOPHEN 500 MG TAB PO SCH; +BUPIVACAINE 0.25% 30 ML VIAL ONE; +BUPIVACAINE 0.5 % 5 MG/1 ML PF 10ML VIAL ONE; -CHOL1000 PO; -CINN1CAP2 PO; +DEXAMETHASONE SOD INJ 4 MG/ML VIAL ONE; +EPINEPHrine INJ 1 MG/ML AMP ONE; +FAMOTIDINE 20 MG TAB PO SCH; +GABAPENTIN 300 MG CAP PO SCH; -GLC/500 PO; +Ketorolac (*for OR use only*) 30 MG, dexAMETHasone 4 MG, KETAMINE HCL (**OR use only) 1... INFIL SCH; +LR 500ML BOLUS, THEN 15ML/HR IV SCH; +LR 60ML/HR IV SCH; -LSN/10125 PO; -MELO7.5T5 PO; -MULT-190 PO; -PRAV20TA PO; +TRANEXAMIC ACID 1,000 MG **IV Intra-op IV SCH; +TRANEXAMIC ACID 1,000 MG **IV Pre-op IV SCH; +ceFAZolin 2000MG 2,000 MG/15 ML SYR IV SCH; +dexAMETHasone 4 MG TAB PO SCH
--- NOTE | 2021-09-14 08:37 | History & Physical Bridge Note ---
Date of Service September 14, 2021 History & Physical Bridge Note I have examined the patient, reviewed the History & Physical and in the interval since the performance of the History & Physical I have noted the following changes of clinical significance: no changes noted
[2021-09-14] MEDS ORDERED: fentaNYL citrate 100 MCG/2 ML VIAL ONE (10:07)
[2021-09-14] MEDS ORDERED: MIDAZOLAM HCL 1 MG/ML 2ML VIAL ONE (10:07)
[2021-09-14] MEDS ORDERED: ORTHO JOINT ANESTHETIC ONE (10:48)
[2021-09-14] MEDS ORDERED: ATROPINE SULFATE 0.1 MG/ML 10ML SYR IV PRN (11:09)
[2021-09-14] MEDS ORDERED: fentaNYL citrate 100 MCG/2 ML VIAL IV PRN (11:09)
[2021-09-14] MEDS ORDERED: ONDANSETRON INJ 2 MG/ML 2 ML VIAL IV PRN ×2 (11:09→13:34)
[2021-09-14] MEDS ORDERED: ePHEDrine sulfate 50 MG/ML AMP IV PRN (11:09)
[2021-09-14] MEDS ORDERED: PROPOFOL IV EMULSION 10 MG/ML 20 ML VIAL IV ONE (11:39)
--- NOTE | 2021-09-14 11:53 | Operative Report ---
PG Post Operative Report Pre & Post Diagnosis Operation Date: 09/14/21 10:30 Pre-Op Diagnosis: Right Knee Osteoarthritis Post-Op Diagnosis: Right Knee Osteoarthritis I identified the patient and participated in the time-out.: Yes Procedure Operation Date: 09/14/21 10:30 Actual Procedures p Right Total Knee Arthroplasty(Right) - Lamin Orlando DO Surgeon Lamin Orlando DO Oven Drier Tender Lamin Andersen PAC Estimated Blood Loss 10 Findings Consistent with Post-Op Diagnosis Specimens Right femoral and tibial bone Complications none Disposition Disposition: Recovery Room Description of Procedure Implants used: I used a José [employer] Persona total knee arthroplasty system with a size 9 standard femur, E tibia, 31 oval patella, and a size 11 medial congruent polyethylene bearing. All components were cemented in place with Biomet cement. Sabiha arrived [facility] for the above procedure. She was seen in the preoperative holding area and the operative extremity was identified and signed. She was given a preoperative antibiotic, TXA, a spinal anesthetic and an adductor nerve block. She was taken back to the operating room and laid on the table in supine position. She was given basic sedation. The operative knee was then prepped and draped in sterile fashion. A timeout was done, and the patient and the operative extremity was properly identified. A midline incision was made directly over the patella. Dissection was taken down to the extensor mechanism. A subvastus arthrotomy was used. The medial retinaculum was released and the fat pad was mostly excised. The knee was flexed and the ACL, PCL, and meniscus were removed. A drill was sent down the center of the femoral canal followed by an intramedullary megha. Off that megha a distal femoral cutting block was placed. 9 mm was resected off the distal femur at 5 of valgus. A posterior referencing AP sizing guide was then placed on the distal femur. The femur measured to be a size 9. 2 drill holes were placed in 3 of external rotation. A 4-in-1 cutting block was then impacted into place. Anterior, posterior, and chamfer cuts were then made. The proximal tibia was then exposed. An external tibial alignment guide was placed. A tibial cut guide was then anchored in place and the proximal tibia was then resected. The posterior aspect of the knee was then opened up and any additional meniscus fragments and osteophytes were removed. The tibia measured to be a size E. The tibial plate was then placed in the appropriate rotation and the tibia was drilled and punched. Trial components were then placed. I used a size 11 medial congruent polyethylene insert. The knee was brought through a full range of motion and felt to be stable. The peg holes for the femoral component were then drilled. The patella was then everted and 9 mm was resected off the posterior aspect of the patella. The patella measured to be a size 31 oval. 3 peg holes were then drilled. A trial patella was placed. The knee was once again brought through a full range of motion and felt to be stable. Trial components were then removed. The surrounding soft tissues were injected with 100 cc of an orthopedic pain control cocktail. All components were then cemented into place with Biomet cement. The final polyethylene insert was then snapped into place. Once cement was dry the tourniquet was deflated. Hemostasis was obtained. A dilute betadyne lavage was then done for 3 minutes. The joint was then irrigated with normal saline solution. The subvastus arthrotomy was then closed with #1 Vicryl suture. The skin was closed with 2-0 Vicryl, 3-0V lock suture, and ken. A soft compressive dressing was placed. She was then transferred to a hospital bed and taken to the postanesthesia care unit in stable condition. She tolerated the procedure well. Lamin Andersen PA-C, was present for the entire procedure. He was critical for patient positioning, prepping, draping, retraction exposure, wound closure and application of sterile dressing. I attest to the content of the Intraoperative Record and any orders documented therein. Any exceptions are noted below.
--- NOTE | 2021-09-14 13:05 | XRay Report ---
XR knee RT 1 or 2V routine HISTORY: 71 years-old Female Surgical Post Op right knee total joint arthroplasty COMPARISON: Knee radiographs 12/26/2020 TECHNIQUE: 2 views the right knee FINDINGS: Right knee total joint arthroplasty with patellar resurfacing. Anterior midline skin ken are note d along with expected postoperative soft tissue swelling with deep tissue air. No acute fracture or u nexpected opaque foreign body. IMPRESSION: Total joint arthroplasty with expected postoperative changes. ACT 112: Negative or not required by law. The above report was generated using voice recognition software. It may contain grammatical, syntax o r spelling errors. Electronically signed by: Sukhwinder Green M.D. 09/14/2021 1:03 PM
--- NOTE | 2021-09-14 13:32 | Anesthesiology Progress Note ---
Date of Service September 14, 2021 Anesthesia Post Procedure Vital Signs Vital Signs: Temp Pulse Pulse Resp BP Pulse Ox 09/14/21 13:30 55 L 14 118/58 L 98 09/14/21 13:15 57 L 18 119/61 98 09/14/21 13:05 36.6 C 66 16 119/56 L 93 09/14/21 12:55 64 15 113/70 96 09/14/21 12:45 66 14 116/67 94 09/14/21 12:35 66 13 114/58 L 99 09/14/21 12:25 67 19 109/53 L 99 09/14/21 12:14 36.4 C L 71 18 106/56 L 100 09/14/21 09:09 36.8 C 67 20 153/64 H 97 Transfer of Care Handoff Completed per policy Notes Mental Status: alert / awake / arousable Patient Amnestic to Procedure: Yes Nausea / Vomiting: adequately controlled Pain: adequately controlled Airway Patency, RR, SpO2: stable & adequate BP & HR: stable & adequate Hydration State: stable & adequate Anesthetic Complications: no major complications apparent
[2021-09-14] MEDS ORDERED: NALOXONE HCL 0.4 MG/1 ML VIAL/CARP IV PRN (13:34)
[2021-09-14] MEDS ORDERED: bisacodyL 10 MG SUPP PR PRN (13:34)
[2021-09-14] MEDS ORDERED: HYDROmorphone INJ 0.5 MG/0.5 ML SYR IV PRN (13:34)
[2021-09-14] MEDS ORDERED: MAGNESIUM HYDROXIDE SUSP 30 ML UDC PO PRN (13:34)
[2021-09-14] MEDS ORDERED: FLUTICASONE PROPIONATE NA SPR 16 GM BTL PRN (13:34)
[2021-09-14] MEDS ORDERED: oxyCODONE HCL IR 5 MG TAB (IMMEDIATE RELEASE) PO PRN (13:34)
[2021-09-14] MEDS ORDERED: METOCLOPRAMIDE HCL INJ 5 MG/ML 2 ML VIAL IV PRN (13:34)
[2021-09-14] MEDS ORDERED: DEXTRAN 70 OPR PRN (13:34)
[2021-09-14] MEDS ORDERED: HYPROMELLOSE OPR PRN (13:34)
[2021-09-14] MEDS: SODIUM CHLORIDE 0.9% 1000ML 1,000 ML IV SCH (13:40)
[2021-09-14] MEDS ORDERED: diphenhydrAMINE Capsule 25 MG CAP PO PRN (13:56)
[2021-09-14] MEDS: ACETAMINOPHEN 500 MG TAB PO SCH ×2 (14:57→22:07)
[2021-09-14] MEDS: KETOROLAC TROMETHAMINE 15 MG/ML VIAL IV SCH ×2 (15:37→22:07)
[2021-09-14] MEDS: ceFAZolin 2000MG 2,000 MG/15 ML SYR IV SCH (18:07)
[2021-09-14] MEDS: ASPIRIN 81 MG ECTAB PO SCH (20:32)
[2021-09-14] MEDS: DOCUSATE SODIUM 100 MG CAP PO SCH (20:33)
[2021-09-14] MEDS ORDERED: NON-FORMULARY MEDICATION (C,E,Zinc,Copper 11-Omega3s-Lut [Ocuvite Adult 50 Plus] 250-5-1 m PO SCH (21:00)
[2021-09-14] MEDS ORDERED: SENNA 8.6 MG TAB PO SCH (21:00)
[2021-09-14] MEDS ORDERED: PRAVASTATIN SOD 20 MG TAB PO SCH (21:00)
[2021-09-15] MEDS: SODIUM CHLORIDE 0.9% 1000ML 1,000 ML IV SCH (00:24)
[2021-09-15] MEDS: ceFAZolin 2000MG 2,000 MG/15 ML SYR IV SCH (02:34)
[2021-09-15] MEDS: KETOROLAC TROMETHAMINE 15 MG/ML VIAL IV SCH ×2 (03:42→10:18)
[2021-09-15] MEDS: ACETAMINOPHEN 500 MG TAB PO SCH (06:04)
--- NOTE | 2021-09-15 06:53 | Orthopedic Progress Note ---
Date of Service September 15, 2021 Assessment & Plan (1) Status post right knee replacement: Overall she is doing very well. She is having much pain in the right knee. She will be seen by physical therapy today for ambulation and range of motion exercises. She is on aspirin for DVT prophylaxis. She can be discharged home later today. She will follow-up with orthopedics in 2 weeks. Rach Landis was seen and examined at bedside this morning. Overall she is doing very well. She is not having much pain in the right knee. She has been up and ambulating to the bathroom. She has no complaints. Review of Systems All systems reviewed & are unremarkable except as noted in HPI & below. Physical Exam On physical examination of the right knee, the dressing is clean and dry. Her leg is out in full extension. She has active dorsiflexion plantarflexion of the right ankle. Results & Data Results & Data Laboratory Results . Diagnostic Findings Postoperative x-rays of the right knee show the prosthesis to be in anatomic alignment without any evidence of fracture, desiccation, or loosening. PG Care Time/CCT Total # of Minutes Spent Total Time Spent with Patient: Total time spent is greater than 50% in coordination of care (as documented) at patient's floor/unit and/or counseling patient: Coding Level of Care Code 00255 Post Operative Follow-Up Diagnoses Status post right knee replacement Z96.651
--- NOTE | 2021-09-15 06:55 | Discharge Summary ---
Date of Service September 15, 2021 Admission HPI (Per Admitting) Sabiha is a pleasant 71-year-old female who I am been treating for bilateral knee pain for years. X-rays have been diagnostic for advanced osteoarthritis of the right knee. I have been giving her intraarticular injections. Unfortunately, the injections are not helping as much anymore. Her right knee pain is becoming worse. She is struggling more and more with the right knee. After failing conservative treatment, she has elected proceed with a right total knee arthroplasty. Admission Exam (Per Admitting) On physical examination the right knee, she has a slight valgus deformity. She has tenderness palpation of the distal lateral femoral condyle and over the lateral joint line.. Principal Diagnosis Same as "Discharge Diagnosis" noted below under Discharge Instructions. Discharge Exam On physical examination of the right knee, the dressing is clean and dry. Her leg is out in full extension. She has active dorsiflexion plantarflexion of the right ankle. Discharge Data Procedures Performed Operation Date: 09/14/21 10:30 Actual Procedures p Right Total Knee Arthroplasty(Right) - Lamin Orlando DO Ordered Studies 09/14/21 05:00 US - OR guided needle placemen Routine Hospital Course (1) Status post right knee replacement: On September 14, [address] [facility] and underwent a right knee replacement without complication. She had a spinal anesthetic. Postoperatively she was started on aspirin for DVT prophylaxis and transferred to the general orthopedic floors. Her hospital course was uneventful. On postop day #1, her vital signs were stable and her pain was well controlled. She was able to participate well with physical therapy doing ambulation and range of motion exercises. She was then discharged home. She will follow-up with orthopedics in 2 weeks. PG Care Time/CCT Total # of Minutes Spent Total Time Spent with Patient: Total time spent is greater than 50% in coordination of care (as documented) at patient's floor/unit and/or counseling patient: Discharge Plan Discharge Items Patient Disposition: Home - Home Health Services Reason For Visit: Right Knee Osteoarthritis Discharge Diagnosis: Status post right knee replacement Activity: Per Instructions section Non-emergency contact: Surgeon Call non-emergency contact if: your wound has increased redness and your wound has increased drainage Follow-up/Referrals: Kristin Edward CRNP [Primary Care Provider] - Diet: Regular Addtl Attending Provider Instructions: Activity and Therapy Recommendations: * If you are using [facility] then therapy will be provided at your home until they feel you have accomplished all of your goals. * If you are using [facility] then Physical Therapy will be provided until they feel you are ready to start Outpatient Physical Therapy. * If you are not using home therapy then Outpatient Physical Therapy should start about 3-5 days from your day of surgery. Therapy will last about 6-10 weeks * It is important not to put a pillow under your knee when you are relaxing or sleeping. It is just as important to make sure you are getting your knee perfectly straight as it is to regain your knee bend. * You were shown a series of exercises in the hospital. Do these exercises three times each day including the exercises you were shown in physical therapy. * Get up and walk several times each day. For the first four weeks, try not to stand or walk for more than one hour at a time. If you do stand or walk for more than one hour, you will not hurt anything, but your leg will likely swell. * As you feel comfortable, you may change from the walker or crutches to a cane and then to independent walking. Medications: * Narcotic You will likely be sent home from the hospital with a prescription for the narcotic pain medication that worked best throughout your stay. * Aspirin Most patients will be required to take Aspirin 81mg twice a day for 6 weeks after surgery. This is obtained [id number] and a prescription is not necessary. * Other medications may be prescribed for specific circumstances. If you have any questions, please call the office at . * Resume previous home medications unless otherwise instructed TEDs/Elastic Stockings: The white elastic stockings help limit swelling and prevent blood clots from forming in your legs.~ The more you wear them, the more they work. Wear them for six weeks. Dressing Care: The dressing can be changed after physical therapy on postop day #1. Daily dry dressing changes for a few days, especially if the incision is still draining some. If the incision is not draining then you may leave the ken open to air. If there is a little bit of drainage or if the ken are getting stuck on your clothing then cover the incision with a dry dressing. The ken will be removed at your 2 week follow-up appointment. Showering: You may shower 5 days from the day of surgery as long as the incision is no longer draining. You may shower with the ken exposed. Let soapy water run over the ken and pat them dry. Do not scrub or soak the incision. Things To Watch For: * Drainage from the incision site that occurs more than one week after your surgery. * Increased redness at the incision site. * Fever above 102 degrees Fahrenheit. * Unusual chest pain or shortness of breath. * Call [facility] at with any of the above problems Follow-Up Visit: Follow-up with Dr. Orlando's PA (Lamin Andersen) 2-3 weeks after your day of surgery. He will remove your ken and answer any questions. If you have any additional questions or concerns, Dr Orlando is usually in the office at the same time and will be available An appointment was probably scheduled when you signed-up for surgery in the office. If you have any questions call Office Instructions: More detailed instructions as well as Frequently Asked Questions were provided in a folder by our office when you signed-up for surgery. Please review these instructions when you get home. If you have any further questions or concerns, please feel free to call the office at [phone] Pending Studies at Discharge: No Stand-Alone Forms: My [facility] Medications and DC Order Prescriptions: New oxycodone-acetaminophen 5-325 mg tablet 1 tab PO Q6H PRN (Reason: pain) Qty: 30 RF: 0 aspirin 81 mg Tablet,Delayed Release (Dr/Ec) 81 mg PO BID 42 Days Qty: 0 RF: 0 Continued metformin 500 mg tablet 500 mg PO BID Qty: 180 RF: 3 pravastatin 20 mg tablet 20 mg PO QPM Qty: 90 RF: 3 lisinopril-hydrochlorothiazide 10-12.5 mg tablet 1 tab PO QAM Qty: 90 RF: 3 Ocuvite Adult 50 Plus 250-5-1 mg capsule 1 cap PO BID RF: 0 (DME) OneTouch Ultra Blue Test Strip strip See Dose Instructions .ROUTE .MEDSUPPLY Qty: 100 RF: 1 azelastine 137 mcg (0.1 %) aerosol,spray 2 spray intranasal DAILY Qty: 30 RF: 0 Hold Instructions: Home Medication placed on hold at Doctor's office (DME) [facility] See Rx Instructions .MEDSUPPLY Qty: 1 RF: 0 cholecalciferol (vitamin D3) 1,000 unit capsule 1,000 units PO QAM RF: 0 fluticasone propionate 50 mcg/actuation spray,suspension 2 sprays intranasal DAILY PRN (Reason: Nasal Congestion) RF: 0 cinnamon bark 500 mg capsule 500 mg PO QAM RF: 0 Artificial Tears (PF) Dropperette 1 drp OPR UD PRN (Reason: Dry Eyes) RF: 0 multivitamin Tablet 1 tab PO QAM RF: 0 diphenhydramine HCl [Benadryl Allergy] 25 mg Tablet 25 mg PO UD PRN (Reason: allergies) RF: 0 metoprolol succinate 50 mg tablet extended release 24 hr 50 mg PO QAM RF: 0 Hair,Skin and Nails Tablet 1 tab PO QAM RF: 0 Discharge Orders: Discharge Order (Routine); Ordered 09/15/21 Ordered By: Lamin Orlando Admission Data Admit Date/Time: 09/14/21 12:13 Attending Provider: Lamin Orlando Admit Provider: Lamin Orlando Primary Care Provider: Kristin Edward
[2021-09-15] MEDS: DOCUSATE SODIUM 100 MG CAP PO SCH (07:45)
[2021-09-15] MEDS: ASPIRIN 81 MG ECTAB PO SCH (07:45)
[2021-09-15] MEDS ORDERED: METOPROLOL SUCC 50MG EXT REL TAB PO SCH (09:00)
[2021-09-15] MEDS ORDERED: LISINOPRIL/HCTZ 10/12.5MG TAB PO SCH (09:00)
[2021-09-15] MEDS ORDERED: MULTIVITAMIN TAB PO SCH (09:00)
== END 2021-09-15 12:57 | disposition home health service (06) ==
LOC: ASU 08:17 → 3E 08:17

== ENCOUNTER 2023-05-19 07:16 | Observation (INO) ==
--- NOTE | 2023-04-24 12:00 | PAT Medication Instructions ---
Medication Instructions Date of Service April 24, 2023 Home Medications Medication Instructions Recorded blood sugar diagnostic (OneTouch #100 ea 12/03/18 Ultra Blue Test Strip) amoxicillin 500 mg tablet 2,000 mg (4 x 500 mg) PO ONCE PRN 12/26/21 prophylaxis #4 tabs lisinopril 10 1 tab PO QAM #90 tabs 07/08/22 mg-hydrochlorothiazide 12.5 mg tablet metformin 500 mg tablet 500 mg PO BID #180 tabs 07/08/22 azelastine 137 mcg (0.1 %) nasal 2 spray intranasal BID PRN allergy 07/25/22 spray aerosol symptoms #30 mL pravastatin 20 mg tablet 20 mg PO QPM #90 tabs 08/08/22 metoprolol succinate 50 mg 50 mg PO QAM #90 tabs 11/07/22 tablet,extended release 24 hr cholecalciferol (vitamin D3) 25 mcg (1,000 unit) capsule 1,000 units PO QAM cinnamon bark 500 mg capsule 500 mg PO QAM vit C,E,zinc,copper-cepej9u 250 mg-lutein 5 mg-zeaxanthin 1 mg capsule (Ocuvite Adult 50 Plus) 1 cap PO BID dextran 70-hypromellose eye drops in a dropperette (Artificial Tears (PF) drops in a dropperette) 1 drp OPR UD PRN Dry Eyes multivitamin 1 tab PO QAM diphenhydramine HCl 25 mg tablet (Benadryl Allergy) 25 mg PO UD PRN allergies amoxicillin 500 mg tablet 2,000 mg (4 x 500 mg) PO ONCE PRN prophylaxis lisinopril 10 mg-hydrochlorothiazide 12.5 mg tablet 1 tab PO QAM metformin 500 mg tablet 500 mg PO BID azelastine 137 mcg (0.1 %) nasal spray aerosol 2 spray intranasal BID PRN allergy symptoms pravastatin 20 mg tablet 20 mg PO QPM metoprolol succinate 50 mg tablet,extended release 24 hr 50 mg PO QAM acetaminophen 500 mg tablet 500 mg PO Q6H PRN prn Continue as directed amoxicillin 500 mg tablet 2,000 mg (4 x 500 mg) PO ONCE PRN prophylaxis (if needed) STOP taking 2 weeks before surgery cinnamon bark 500 mg capsule 500 mg PO QAM vit C,E,zinc,copper-yyssp0t 250 mg-lutein 5 mg-zeaxanthin 1 mg capsule (Ocuvite Adult 50 Plus) 1 cap PO BID DO NOT take the morning of surgery cholecalciferol (vitamin D3) 25 mcg (1,000 unit) capsule 1,000 units PO QAM multivitamin 1 tab PO QAM diphenhydramine HCl 25 mg tablet (Benadryl Allergy) 25 mg PO UD PRN allergies lisinopril 10 mg-hydrochlorothiazide 12.5 mg tablet 1 tab PO QAM metformin 500 mg tablet 500 mg PO BID Take morning of surgery With a small sip of water, OTHERWISE NOTHING TO EAT OR DRINK AFTER MIDNIGHT: dextran 70-hypromellose eye drops in a dropperette (Artificial Tears (PF) drops in a dropperette) 1 drp OPR UD PRN Dry Eyes (if needed) azelastine 137 mcg (0.1 %) nasal spray aerosol 2 spray intranasal BID PRN allergy symptoms (if needed) metoprolol succinate 50 mg tablet,extended release 24 hr 50 mg PO QAM acetaminophen 500 mg tablet 500 mg PO Q6H PRN (if needed) Take evening before surgery dextran 70-hypromellose eye drops in a dropperette (Artificial Tears (PF) drops in a dropperette) 1 drp OPR UD PRN Dry Eyes (if needed) diphenhydramine HCl 25 mg tablet (Benadryl Allergy) 25 mg PO UD PRN allergies (if needed) metformin 500 mg tablet 500 mg PO BID azelastine 137 mcg (0.1 %) nasal spray aerosol 2 spray intranasal BID PRN allergy symptoms (if needed) pravastatin 20 mg tablet 20 mg PO QPM acetaminophen 500 mg tablet 500 mg PO Q6H PRN (if needed) Other Notes If you have any questions please call us at [phone] or [phone] or [phone] or [phone]
--- NOTE | 2023-04-30 12:53 | Anesthesiology Consultation ---
Date of Service April 30, 2023 Assessment & Plan (1) Encounter for pre-operative examination: - Check BSG AM DOS - Infectious disease screening: Per assessment on 04/30/23: No known infectious disease contacts or current infectious disease symptoms. Patient did have congestion for a few days with symptom onset ~04/19/23 which resolved- has intermittent, chronic sinus issues so she does occasional get congestion- no current issues. No noted recent Covid positive test result. - Outpatient joint assessment: Pt currently scheduled for inpatient pathway. If surgeon requests review for outpatient joint pathway, patient is not recommended candidate for outpatient joint program from anesthesia standpoint based on available information. - RUE limb restriction: s/p right mastectomy - S/P Right TKA (09/14/21): SAB at L3/4 x1 attempt + regional at [facility] - Cardiology visit (05/27/22): "Frequent unifocal PVCs: She has had excellent suppression of her PVCs clinically and on several recent electrocardiograms on relatively low-dose beta-blockade. She has started to have more symptoms over the last 6 months, however she relates these to stress or anxiety and they seem to vary quite a bit. She is however satisfied with the way she feels and her left ventricular ejection fraction has remained normal. She would prefer to maintain the same dose of metoprolol and I think that is acceptable for now.. Hypertension: Her blood pressure is excellent today. I would like her to come back for follow-up in about 12 months. I will schedule an echocardiogram and a Holter monitor at that time." - Pending: * Patient scheduled to see PCP prior to surgery for routine appointment. Awaiting PCP office visit note ([facility], appt 05/05). * Workload note written to cardiology- Cardiology recommending patient be seen prior to surgery. Awaiting cardiology-ordered Echo (05/12, ID) and preop evaluation appt ([facility] cardio, appt TBD). Chart Review Chart Review: Patient seen in Pre Admission Testing Teaching & Discussion Pre-Anesthesia Teaching/Discussion Notes: Instructed NPO after midnight before surgery,except medications with 15 cc of water. Medication instructions provided according to the PAT guidelines. History Surgery Operation Date: 05/19/23 09:00 Proposed Procedures p Left Total Knee Arthroplasty - Lamin Orlando, DO Height/Weight Height: 5 ft 8 in Weight: 83.6 kg Allergies Allergy/AdvReac Type Severity Reaction Status Date / Time naproxen Allergy Mild Rash Verified 05/01/23 12:35 adhesive AdvReac Mild Skin Verified 05/01/23 12:35 redness Medications Home Medications Medication Instructions Recorded Confirmed Last Taken cholecalciferol (vitamin D3) 25 1,000 units PO QAM 11/11/18 04/23/23 08/31/21 08:00 mcg (1,000 unit) capsule cinnamon bark 500 mg capsule 500 mg PO QAM 12/01/18 04/23/23 08/31/21 08:00 vit C,E,zinc,copper-defej0j 250 1 cap PO BID 12/01/18 04/23/23 08/31/21 08:00 mg-lutein 5 mg-zeaxanthin 1 mg capsule (Ocuvite Adult 50 Plus) blood sugar diagnostic (OneTouch #100 ea 12/03/18 01/29/23 Unknown Ultra Blue Test Strip) dextran 70-hypromellose eye drops 1 drp OPR UD PRN Dry Eyes 12/08/18 04/23/23 12/20/18 in a dropperette (Artificial Tears (PF) drops in a dropperette) multivitamin 1 tab PO QAM 12/08/18 04/23/23 08/31/21 08:00 diphenhydramine HCl 25 mg tablet 25 mg PO UD PRN allergies 08/16/21 04/23/23 Unknown (Benadryl Allergy) amoxicillin 500 mg tablet 2,000 mg (4 x 500 mg) PO ONCE PRN 12/26/21 04/23/23 Unknown prophylaxis #4 tabs lisinopril 10 1 tab PO QAM #90 tabs 07/08/22 04/23/23 Unknown mg-hydrochlorothiazide 12.5 mg tablet metformin 500 mg tablet 500 mg PO BID #180 tabs 07/08/22 04/23/23 Unknown azelastine 137 mcg (0.1 %) nasal 2 spray intranasal BID PRN allergy 07/25/22 04/23/23 Unknown spray aerosol symptoms #30 mL pravastatin 20 mg tablet 20 mg PO QPM #90 tabs 08/08/22 04/23/23 Unknown metoprolol succinate 50 mg 50 mg PO QAM #90 tabs 11/07/22 04/23/23 Unknown tablet,extended release 24 hr acetaminophen 500 mg tablet 500 mg PO Q6H PRN prn 04/23/23 04/23/23 Unknown Past Medical History Medical History Diabetes mellitus, type 2 NIDDM Frequent PVCs Reason for metoprolol, chronic palpitations, denies change or worsening Hearing deficit Right ear History of malignant neoplasm of right breast s/p surgery + chemo (2016)-limb restriction of right upper extremity Hyperlipidemia Hypertension controlled, stable per pt Limb alert care status RUE- r/t right mastectomy Macular pucker, left eye Postmenopausal Rosacea Skin cancer BCC Exercise / Class Metabolic Activity III < 4 Walking/Shop/Light housework Past Family History Family History Aunt Stroke maternal Diabetes maternal Father Lung cancer Family/Other Asthma maternal cousin FHx: deafness or hearing loss Environmental allergies Sinus disorder Hypertension Grandmother No problems noted. Mother Hypertension Myocardial infarction Unknown No problems noted. Grandmother (Maternal) Stroke Denies family history of Ovarian cancer Prostate cancer Breast cancer Colorectal cancer Past Surgical History Surgical History Family history of reaction to anesthesia Several family members: slow to wake History of anesthesia reaction Slow to wake History of breast biopsy History of cataract surgery 2022. bilateral (apr 04 left, apr 11 right eye) History of colonoscopy History of dilatation and curettage History of placement of ear tubes Right myringotomy tube (12/21/18): LMA#4 at [facility] History of removal of Port-a-Cath 2016 History of surgical removal of skin lesion History of tonsillectomy and adenoidectomy S/P right mastectomy with lymph node removal Status post right knee replacement Right TKA (09/14/21): SAB at L3/4 x1 attempt + regional at [facility] Morenci teeth extracted Past Anesthesia History Other Patient + Several family members: slow to wake History of PONV No Hx of PONV and No Hx of Motion Sickness Social History Smoking Status: Never smoker Do You Dip or Chew Tobacco: No Hx Alcohol Use: Yes Alcohol type: wine alcohol intake frequency: holidays/special occasions only Hx Substance Use: No substance use type: does not use Review of Systems Rare palpitations. Patient denies chest pain, shortness of breath, dyspnea on exertion, fever, chills, cough, wheezing. Physical Exam Vital Signs VITALS BP 124/57 P 68 TEMP 97.7 SP02 95%RA RESP 16 PHYSICAL Full cervical extension range of motion. Full TMJ range of motion. TMD 2.5 finger breaths (small chin) Mallampati Score 1 Dentition: intact, + crowns (several) Lungs: clear throughout to auscultation Cardiac: regular rate and rhythm, no murmurs noted Spine: kyphosis Carotid arteries: negative bruit Extremities: no LE edema Lab Results Anesthesia Preop Results Results Anesthesia Widget: WBC 5.89 K/ul (4.8-10.8) 04/23/23 Hgb 12.3 g/dl (12.0-16.0) 04/23/23 Hct 38.0 % (37.0-47.0) 04/23/23 Plt 144 K/uL (130-400) 04/23/23 Na 139 mmol/L (136-145) 04/23/23 K 3.8 mmol/L (3.5-5.1) 04/23/23 Cl 103 mmol/L (98-107) 04/23/23 CO2 28 mmol/L (21-32) 04/23/23 BUN 18 mg/dl (6-23) 04/23/23 Creat 0.91 mg/dl (0.6-1.2) 04/23/23 Glucose Level 104 mg/dl (70-99(Fasting)) H 04/23/23 PT 10.5 Seconds (9.0-12.0) 04/30/23 PTT 27 Seconds (21-31) 04/30/23 INR 1.0 (0.9-1.1) 04/30/23 HA1c 6.5 % (4.5-5.6) H 04/23/23 Blood Type A Positive 04/30/23 Antibody Screen NEGATIVE 04/30/23 Testing Electrocardiogram Date: 04/30/23 SR with occasional PVCs at 65bpm. Possible LAE. Chest X-Ray Date: 04/30/23 FINDINGS: PA and lateral chest radiographs are compared to study dated 08/20/2021. The heart is mildly enlarged noting atherosclerotic calcification of the thoracic aorta. The pulmonary vasculature is noncongested. There is minimal bibasilar scarring/atelectasis. The lungs and pleural spaces are otherwise clear. There is no pneumothorax. The skeletal structures are osteopenic. The bony thorax appears intact. Degenerative change and hyperkyphosis is noted in the thoracic spine. IMPRESSION: Moderate cardiomegaly with no active disease in the chest.
[~2023-05-19 07:16] MED LIST changes: -ACETAMINOPHEN 500 MG TAB PO SCH; +ALLERGY Noted to ORDERED Medication SCH; -BUPIVACAINE 0.25% 30 ML VIAL ONE; +BUPIVACAINE 0.25% PF 30 ML VIAL ONE; -DEXAMETHASONE SOD INJ 4 MG/ML VIAL ONE; -EPINEPHrine INJ 1 MG/ML AMP ONE; -FAMOTIDINE 20 MG TAB PO SCH; -GABAPENTIN 300 MG CAP PO SCH; -Ketorolac (*for OR use only*) 30 MG, dexAMETHasone 4 MG, KETAMINE HCL (**OR use only) 1... INFIL SCH; -LR 500ML BOLUS, THEN 15ML/HR IV SCH; -LR 60ML/HR IV SCH; -TRANEXAMIC ACID 1,000 MG **IV Intra-op IV SCH; -TRANEXAMIC ACID 1,000 MG **IV Pre-op IV SCH; -ceFAZolin 2000MG 2,000 MG/15 ML SYR IV SCH; -dexAMETHasone 4 MG TAB PO SCH
--- NOTE | 2023-05-19 08:03 | History & Physical Bridge Note ---
Date of Service May 19, 2023 History & Physical Bridge Note I have examined the patient, reviewed the History & Physical and in the interval since the performance of the History & Physical I have noted the following changes of clinical significance: no changes noted
[2023-05-19] MEDS ORDERED: MIDAZOLAM HCL 1 MG/ML 2ML VIAL ONE (08:11)
[2023-05-19] MEDS ORDERED: fentaNYL citrate PF 100 MCG/2 ML VIAL ONE (08:11)
[2023-05-19] MEDS: LR 500ML BOLUS, THEN 15ML/HR IV SCH (08:13)
[2023-05-19] MEDS: LR 60ML/HR IV SCH (08:14)
[2023-05-19] MEDS: ACETAMINOPHEN 500 MG TAB PO SCH ×2 (08:19→14:18)
[2023-05-19] MEDS: GABAPENTIN 300 MG CAP PO SCH (08:19)
[2023-05-19] MEDS: dexAMETHasone**PF** 10 MG/ML VIAL IV SCH (08:20)
[2023-05-19] MEDS: FAMOTIDINE 20 MG TAB PO SCH (08:20)
[2023-05-19] MEDS ORDERED: ATROPINE SULFATE 0.1 MG/ML 10ML SYR IV PRN (08:38)
[2023-05-19] MEDS ORDERED: ONDANSETRON INJ 2 MG/ML 2 ML VIAL IV PRN (08:38)
[2023-05-19] MEDS ORDERED: ePHEDrine sulfate 50 MG/ML AMP IV PRN (08:38)
[2023-05-19] MEDS ORDERED: PROPOFOL IV EMULSION 10 MG/ML 20 ML VIAL IV ONE (08:38)
[2023-05-19] MEDS ORDERED: fentaNYL citrate PF 100 MCG/2 ML VIAL IV PRN (08:38)
[2023-05-19] MEDS: TRANEXAMIC ACID 1,000 MG **IV Pre-op IV SCH (08:47)
[2023-05-19] MEDS: ceFAZolin 2000MG 2,000 MG/15 ML SYR IV SCH ×2 (08:59→16:55)
[2023-05-19] MEDS: ROPIV 0.5% 246mg, Ketorolac 30mg, EPINEPHrine 0.5mg in NSS INFIL SCH (09:20)
[2023-05-19] MEDS ORDERED: ONDANSETRON INJ 2 MG/ML 2 ML VIAL ONE (09:50)
[2023-05-19] MEDS ORDERED: LIDOCAINE 2% 2 ML VIAL/AMP(20MG/ML) INFIL ONE (09:50)
--- NOTE | 2023-05-19 09:57 | Operative Report ---
PG Post Operative Report Pre & Post Diagnosis Operation Date: 05/19/23 09:00 Pre-Op Diagnosis: DJD Left Knee Post-Op Diagnosis: DJD Left Knee I identified the patient and participated in the time-out.: Yes Procedure Operation Date: 05/19/23 09:00 Actual Procedures p Left Total Knee Arthroplasty(Left) - Lamin Orlando DO Surgeon Lamin Orlando DO Retinal Angiographer Lamin Andersen PA-C Estimated Blood Loss 30 Findings Consistent with Post-Op Diagnosis Specimens Left femoral and tibial bone Description of Procedure Implants used: I used a [employer] total knee arthroplasty system with a size 8 standard femur, E tibia, 31 oval patella, and a size 10 medial congruent polyethylene bearing. All components were cemented in place with Biomet cement. Sabiha arrived [facility] for the above procedure. She was seen in the preoperative holding area and the operative extremity was identified and signed. She was given a preoperative antibiotic, TXA, a spinal anesthetic and an adductor nerve block. She was taken back to the operating room and laid on the table in supine position. She was given basic sedation. The operative knee was then prepped and draped in sterile fashion. A timeout was done, and the patient and the operative extremity was properly identified. A midline incision was made directly over the patella. Dissection was taken down to the extensor mechanism. A subvastus arthrotomy was used. The medial retinaculum was released and the fat pad was mostly excised. The knee was fl exed and the ACL, PCL, and meniscus were removed. A drill was sent down the center of the femoral canal followed by an intramedullary megha. Off that megha a distal femoral cutting block was placed. 9 mm was resected off the distal femur at 5 of valgus. A posterior referencing AP sizing guide was then placed on the distal femur. The femur measured to be a size 8. 2 drill holes were placed in 3 of external rotation. A 4-in-1 cutting block was then impacted into place. Anterior, posterior, and chamfer cuts were then made. The proximal tibia was then exposed. An external tibial alignment guide was placed. A tibial cut guide was then anchored in place and the proximal tibia was then resected. The posterior aspect of the knee was then opened up and any additional meniscus fragments and osteophytes were removed. The tibia measured to be a size E. The tibial plate was then placed in the appropriate rotation and the tibia was drilled and punched. Trial components were then placed. I used a size 10 medial congruent polyethylene insert. The knee was brought through a full range of motion and felt to be stable. The peg holes for the femoral component were then drilled. The patella was then everted and 9 mm was resected off the posterior aspect of the patella. The patella measured to be a size 31 oval. 3 peg holes were then drilled. A trial patella was placed. The knee was once again brought through a full range of motion and felt to be stable. Trial components were then removed. The surrounding soft tissues were injected with 100 cc of an orthopedic pain control cocktail. All components were then cemented into place with Biomet cement. The final polyethylene insert was then snapped into place. Once cement was dry the tourniquet was deflated. Hemostasi s was obtained. A dilute betadyne lavage was then done for 3 minutes. The joint was then irrigated with normal saline solution. The subvastus arthrotomy was then closed with #1 Vicryl suture. The skin was closed with 2-0 Vicryl, 3- 0V lock suture, and ken. A soft compressive dressing was placed. She was then transferred to a hospital bed and taken to the postanesthesia care unit in stable condition. She tolerated the procedure well. Lamin Andersen PA-C, was present for the entire procedure. He was critical for patient positioning, prepping, draping, retraction exposure, wound closure and application of sterile dressing. I attest to the content of the Intraoperative Record and any orders documented therein. Any exceptions are noted below.
[2023-05-19] MEDS: TRANEXAMIC ACID 1,000 MG **IV Intra-op IV SCH (10:00)
--- NOTE | 2023-05-19 10:41 | XRay Report ---
XR knee LT 1 or 2V routine HISTORY: 73 years-old Female Surgical Post Op left knee arthroplasty COMPARISON: 09/24/2022 radiographs TECHNIQUE: 2 views of the left knee FINDINGS: Total joint arthroplasty with patellar resurfacing. Anterior midline skin ken are noted along wit h expected postoperative soft tissue swelling and deep tissue air. No acute fracture, alignment or op aque foreign body. IMPRESSION: Total joint arthroplasty with expected postoperative changes. ACT 112: Negative or not required by law. The above report was generated using voice recognition software. It may contain grammatical, syntax o r spelling errors. Electronically signed by: Sukhwinder Green M.D. 05/19/2023 10:39 AM
[2023-05-19] MEDS ORDERED: NALOXONE HCL 0.4 MG/1 ML VIAL/CARP IV PRN (11:54)
[2023-05-19] MEDS ORDERED: PHARMACY GLYCEMIC MGMT CONSULT PRN (11:54)
[2023-05-19] MEDS ORDERED: HYDROmorphone INJ 0.5 MG/0.5 ML SYR IV PRN (11:54)
[2023-05-19] MEDS ORDERED: bisacodyL 10 MG SUPP PR PRN (11:54)
[2023-05-19] MEDS ORDERED: AZELASTINE HCL 0.1% NASAL 200 SPRAYS/27,400 MCG BTL NAE PRN (11:54)
[2023-05-19] MEDS ORDERED: MAGNESIUM HYDROXIDE SUSP 30 ML UDC PO PRN (11:54)
[2023-05-19] MEDS ORDERED: oxyCODONE HCL IR 5 MG TAB (IMMEDIATE RELEASE) PO PRN (11:54)
[2023-05-19] MEDS: ORTHO JOINT ANESTHETIC ONE (12:03)
[2023-05-19] MEDS: METOCLOPRAMIDE HCL INJ 5 MG/ML 2 ML VIAL IV PRN (12:20)
[2023-05-19] MEDS: SODIUM CHLORIDE 0.9% 1,000 ML IV SCH (12:20)
[2023-05-19] MEDS ORDERED: ARTIFICIAL TEARS OP PRN (12:22)
[2023-05-19] MEDS ORDERED: diphenhydrAMINE Capsule 25 MG CAP PO PRN (12:23)
[2023-05-19] MEDS ORDERED: GLUCOSE 10 TAB/TUBE PO PRN (12:30)
[2023-05-19] MEDS ORDERED: GLUCOSE 40% GEL 15 GM TUBE PO PRN (12:30)
[2023-05-19] MEDS ORDERED: CARBOHYDRATES FOR HYPOGLYCEMIA PO PRN (12:30)
[2023-05-19] MEDS ORDERED: DEXTROSE 50% 50 ML SYRINGE IV PRN (12:30)
[2023-05-19] MEDS ORDERED: GLUCAGON FOR INJ 1 MG VIAL IM PRN (12:30)
[2023-05-19] MEDS: INSULIN ASPART PER UNIT CHARGE SC SCH (12:36)
--- NOTE | 2023-05-19 12:36 | Pharmacy Report ---
Pharmacy Glycemic Short Note 2 - Date of Service May 19, 2023 - Glycemic Short BSG Results (Last 24 hours): 05/19/23 05/19/23 05/19/23 07:45 10:19 11:44 POC Glucose 104 H 132 H 141 H OUTPATIENT ANTIDIABETIC REGIMEN: * Metformin 500 mg PO BIDM HbA1c: 6.5% (04/23/23) ASSESSMENT: * CS is a 73 year old female POD #0 s/p left total knee arthroplasty * No perioperative steroids * Well-controlled T2DM, on metformin only * Preop BSG of 104 mg/dL, postop BSG of 141 mg/dL PLAN FOR INPATIENT GLYCEMIC CONTROL: * Hold outpatient oral diabetes medications * Basal insulin * hold for now * Bolus insulin * NovoLog per scale ACHS or Q6hrs while NPO * Goal Range: Low 110 mg/dL - High 140 mg/dL * Correction Factor: 30 mg/dL/unit * Nutritional / Prandial insulin per carb ratio of 1 unit per 9 grams CHO consumed
[2023-05-19] MEDS: KETOROLAC TROMETHAMINE 15 MG/ML VIAL IV SCH (12:38)
[2023-05-19] MEDS: ONDANSETRON INJ 2 MG/ML 2 ML VIAL IV PRN (14:18)
--- NOTE | 2023-05-19 14:33 | Anesthesiology Progress Note ---
Date of Service May 19, 2023 Anesthesia Post Procedure Vital Signs Vital Signs: Temp Pulse Pulse Resp BP BP Pulse Ox 05/19/23 13:45 36.3 C L 60 16 156/70 H 99 05/19/23 12:40 36.5 C 64 16 120/73 96 05/19/23 12:15 36.4 C L 64 17 119/69 96 05/19/23 11:45 36.6 C 76 19 124/67 96 05/19/23 11:25 36.4 C L 58 L 17 109/51 L 97 05/19/23 11:15 36.4 C L 67 13 106/55 L 95 05/19/23 11:05 36.4 C L 61 12 113/55 L 94 05/19/23 10:55 36.4 C L 63 15 120/53 L 97 05/19/23 10:45 62 17 122/61 100 05/19/23 10:35 62 8 L 116/63 99 05/19/23 10:25 63 17 121/61 100 05/19/23 10:15 36.6 C 68 16 111/60 99 05/19/23 07:58 36.7 C 61 20 138/59 L 98 O2 Del Method O2 Flow Rate 05/19/23 13:45 Room Air 05/19/23 12:40 Room Air 05/19/23 12:15 Room Air 05/19/23 11:45 Room Air 05/19/23 11:25 Room Air 05/19/23 11:15 Room Air 05/19/23 11:05 Room Air 05/19/23 10:55 Room Air 05/19/23 10:45 Oxymask 2 05/19/23 10:35 Oxymask 3 05/19/23 10:25 Oxymask 3 05/19/23 10:15 Oxymask 5 05/19/23 07:58 Room Air Transfer of Care Handoff Completed per policy Notes Mental Status: alert / awake / arousable Patient Amnestic to Procedure: Yes Nausea / Vomiting: adequately controlled Pain: adequately controlled Airway Patency, RR, SpO2: stable & adequate BP & HR: stable & adequate Hydration State: stable & adequate Neuraxial Anesthesia: was administered and sensory block is resolving Anesthetic Complications: no major complications apparent and Pt Satisfied with anesthetic care
[2023-05-19] MEDS: SENNA 8.6 MG TAB PO SCH (20:11)
[2023-05-19] MEDS: PRAVASTATIN SOD 20 MG TAB PO SCH (20:11)
[2023-05-19] MEDS: DOCUSATE SODIUM 100 MG CAP PO SCH (20:12)
[2023-05-19] MEDS: ASPIRIN 81 MG ECTAB PO SCH (20:12)
[2023-05-19] MEDS ORDERED: NON-FORMULARY MEDICATION (C,E,Zinc,Copper 11-Omega3s-Lut [Ocuvite Adult 50 Plus] 250-5-1 m PO SCH (21:00)
[2023-05-20] MEDS: LISINOPRIL/HCTZ 10/12.5MG TAB PO SCH (08:10)
[2023-05-20] MEDS: MULTIVITAMIN TAB PO SCH (08:10)
[2023-05-20] MEDS: METOPROLOL SUCC 50MG EXT REL TAB PO SCH (08:10)
--- NOTE | 2023-05-20 10:02 | Orthopedic Progress Note ---
Date of Service May 20, 2023 Assessment & Plan (1) Status post left knee replacement: Overall she is doing quite well today with good pain control to the left knee. She will work with physical therapy later this morning to work on ambulation and range of motion exercises. She is on aspirin for DVT prophylaxis. She can be discharged home later this morning pending physical therapy evaluation. She will follow-up in 2 weeks with orthopedics for postoperative management. Subjective . Sabiha was seen and evaluated at bedside this morning resting comfortably in no apparent distress. She notes that her pain is well-controlled to the left knee. She has been up and ambulating without significant difficulties. She has yet to work with physical therapy yet this morning. She denies any other concerns today. Review of Systems All systems reviewed & are unremarkable except as noted in HPI & below. Physical Exam . On physical examination of the left knee, her dressings are clean, dry, and intact. Her leg is out in full extension. She has active plantarflexion dorsiflexion to the left ankle. +2 DP and PT pulse. Less than 2-second capillary refill. Normal sensation. Neurovascular intact. Results & Data Results & Data Laboratory Results . Diagnostic Findings . Postoperative x-rays of the left knee show prosthesis to be in anatomical position with no signs of fracture complication or loosening. PG Care Time/CCT Total # of Minutes Spent Total Time Spent with Patient: Total time spent is greater than 50% in coordination of care (as documented) at patient's floor/unit and/or counseling patient: Coding Level of Care Code 86778 Post Operative Follow-Up Diagnoses Status post left knee replacement Z96.652
--- NOTE | 2023-05-20 10:04 | Discharge Summary ---
Date of Service May 20, 2023 Principal Diagnosis Same as "Discharge Diagnosis" noted below under Discharge Instructions. Discharge Exam . On physical examination of the left knee, her dressings are clean, dry, and intact. Her leg is out in full extension. She has active plantarflexion dorsiflexion to the left ankle. +2 DP and PT pulse. Less than 2-second capillary refill. Normal sensation. Neurovascular intact. Discharge Data Procedures Performed Operation Date: 05/19/23 09:00 Actual Procedures p Left Total Knee Arthroplasty(Left) - Lamin Orlando DO Ordered Studies 05/19/23 05:00 US - OR guided needle placemen Routine Hospital Course (1) Status post left knee replacement: On May 19, 2023 Sabiha arrived at [facility] and underwent a left total knee arthroplasty without any complications performed by Dr. Orlando. She had a spinal anesthetic. Postoperatively, she was started on aspirin for DVT prophylaxis and transferred to the general orthopedic floor in stable condition. Her hospital course was uneventful. On postoperative day #1, her vital signs are stable and her pain was well-controlled. She participated well with physical therapy working on ambulation and range of motion exercises. She was then discharged home in stable condition. She will follow-up in 2 weeks with orthopedics for postoperative care. PG Care Time/CCT Total # of Minutes Spent Total Time Spent with Patient: Total time spent is greater than 50% in coordination of care (as documented) at patient's floor/unit and/or counseling patient: Discharge Plan Discharge Items Patient Disposition: Home - Home Health Services Reason For Visit: DJD Left Knee Discharge Diagnosis: Same Activity: Per Instructions section Non-emergency contact: Surgeon Call non-emergency contact if: your temperature is above 101.5, your wound has increased redness, your wound has increased drainage and your wound pain has increased Follow-up/Referrals: Kristin Edward CRNP [Primary Care Provider] - Diet: Carb Consistent or DM2 Addtl Attending Provider Instructions: Activity and Therapy Recommendations: * If you are using [facility] then therapy will be provided at your home until they feel you have accomplished all of your goals. * If you are using [facility] then Physical Therapy will be provided until they feel you are ready to start Outpatient Physical Therapy. * If you are not using home therapy then Outpatient Physical Therapy should start about 3-5 days from your day of surgery. Therapy will last about 6-10 weeks * It is important not to put a pillow under your knee when you are relaxing or sleeping. It is just as important to make sure you are getting your knee perfectly straight as it is to regain your knee bend. * You were shown a series of exercises in the hospital. Do these exercises three times each day including the exercises you were shown in physical therapy. * Get up and walk several times each day. For the first four weeks, try not to stand or walk for more than one hour at a time. If you do stand or walk for more than one hour, you will not hurt anything, but your leg will likely swell. * As you feel comfortable, you may change from the walker or crutches to a cane and then to independent walking. Medications: * Narcotic You will likely be sent home from the hospital with a prescription for the narcotic pain medication that worked best throughout your stay. * Cefadroxil -take the antibiotic twice a day for 10 days to help prevent infection. * Aspirin Most patients will be required to take Aspirin 81mg twice a day for 6 weeks after surgery. This is obtained [id number] and a prescription is not necessary. * Other medications may be prescribed for specific circumstances. If you have any questions, please call the office at . * Resume previous home medications unless otherwise instructed TEDs/Elastic Stockings: The white elastic stockings help limit swelling and prevent blood clots from forming in your legs.~ The more you wear them, the more they work. Wear them for six weeks. Dressing Care: The dressing can be changed after physical therapy on postop day #1. Daily dry dressing changes for a few days, especially if the incision is still draining some. If the incision is not draining then you may leave the ken open to air. If there is a little bit of drainage or if the ken are getting stuck on your clothing then cover the incision with a dry dressing. The ken will be removed at your 2 week follow-up appointment. Showering: You may shower 5 days from the day of surgery as long as the incision is no longer draining. You may shower with the ken exposed. Let soapy water run over the ken and pat them dry. Do not scrub or soak the incision. Things To Watch For: * Drainage from the incision site that occurs more than one week after your surgery. * Increased redness at the incision site. * Fever above 102 degrees Fahrenheit. * Unusual chest pain or shortness of breath. * Call [facility] at with any of the above problems Follow-Up Visit: Follow-up with Dr. Orlando's PA (Lamin Andersen) 2-3 weeks after your day of surgery. He will remove your ken and answer any questions. If you have any additional questions or concerns, Dr Orlando is usually in the office at the same time and will be available An appointment was probably scheduled when you signed-up for surgery in the office. If you have any questions call Office Instructions: More detailed instructions as well as Frequently Asked Questions were provided in a folder by our office when you signed-up for surgery. Please review these instructions when you get home. If you have any further questions or concerns, please feel free to call the office at [phone] Pending Studies at Discharge: No Stand-Alone Forms: [facility], Smoking Cessation Medications and DC Order Prescriptions: New aspirin 81 mg Tablet,Delayed Release (Dr/Ec) 81 mg PO BID 42 Days Qty: 84 0RF oxycodone 5 mg Tablet 5 mg PO Q6 PRN (Reason: pain) Qty: 30 0RF cefadroxil 500 mg capsule 500 mg PO BID 10 Days Qty: 20 0RF Continued amoxicillin 500 mg tablet 2,000 mg PO ONCE PRN (Reason: prophylaxis) Qty: 4 2RF Rx Instructions: ONE HOUR PRIOR TO DENTAL PROCEDURE metformin 500 mg tablet 500 mg PO BID Qty: 180 3RF lisinopril-hydrochlorothiazide 10-12.5 mg tablet 1 tab PO QAM Qty: 90 3RF pravastatin 20 mg tablet 20 mg PO QPM Qty: 90 3RF metoprolol succinate 50 mg tablet extended release 24 hr 50 mg PO QAM Qty: 90 3RF Ocuvite Adult 50 Plus 250-5-1 mg capsule 1 cap PO BID (DME) OneTouch Ultra Blue Test Strip strip See Dose Instructions .ROUTE .MEDSUPPLY Qty: 100 1RF Dose Instruction: As directed Rx Instructions: Test once daily and as needed azelastine 137 mcg (0.1 %) aerosol,spray 2 spray intranasal BID PRN (Reason: allergy symptoms) Qty: 30 6RF Hold Instructions: Home Medication placed on hold at Doctor's office Rx Instructions: administer into each nostril cholecalciferol (vitamin D3) 1,000 unit capsule 1,000 units PO QAM cinnamon bark 500 mg capsule 500 mg PO QAM Artificial Tears (PF) Dropperette 1 drp OPR UD PRN (Reason: Dry Eyes) multivitamin Tablet 1 tab PO QAM diphenhydramine HCl [Benadryl Allergy] 25 mg Tablet 25 mg PO UD PRN (Reason: allergies) acetaminophen 500 mg Tablet 500 mg PO Q6H PRN (Reason: prn) Admission Data Admit Date/Time: 05/19/23 10:21 Attending Provider: Lamin Orlando Admit Provider: Lamin Orlando Primary Care Provider: Kristin Edward Other Interventions: Discharge Summary Assessment (RN) Last Done: 05/20/23 09:26
--- NOTE | 2023-05-20 11:59 | Hospitalist Consultation ---
Date of Consultation May 20, 2023 Assessment & Plan (1) Vasovagal syncope: Syncope, suspect vasovagal Last echo 05/12/2023: EF 60-65%, grade 1 diastolic dysfunction Patient had an episode of syncope while sitting while she was watching her IV access be removed. Had a similar reaction when she cut her finger selected blood many years ago No chest pain, chest pressure or focal neurologic deficits. Patient had a slow prodrome prior consistent with vasovagal syncope, do not suspect this is neurogenic or cardiogenic. She had no head strike or traumatic injury from this episode EKG is sinus rhythm with 1 PVC. Her resting rate is in the low 60s, she is on metoprolol tartrate for PVCs of which 1 was seen on her EKG; given her low resting heart rate recommend this be cut in half to 25 mg. If she has an increase in symptomatic PVCs can increase back to 50, and she will use a pulse ox in the morning at home to check her heart rate and if her rate is less than 60 we will hold her metoprolol. She will continue to follow-up with her outpatient lacing operator for further recommendations, and if she has an increase in symptomatic PVCs will call them for an appointment. Patient prefers to avoid blood work this morning if possible. As she feels well, is normotensive, is able to stand and ambulate without lightheadedness and dizziness, an episode of syncope is consistent with vasovagal syncope which occurred while she was having IV access manipulated feel it is reasonable to defer this at this time. Return precautions were given. Patient is returning home with her sister who will be watching her and if she has any recurrent or increased symptoms will bring her back for reevaluation. Patient will also be cautious when standing to make sure that she does not have any lightheadedness or dizziness before ambulating, no additional questions at bedside. Discussed with orthopedic vera GRECO for discharge S/p left total knee arthroplasty Patient presented for scheduled left total knee arthroplasty with Dr. Orlando which was completed 05/19/2023 with estimated blood loss 30 cc and no complications Pain control, DVT prophylaxis, activity recommendations per primary team PVCs Patient has a history of PVCs on beta-gaby. Metoprolol reduced to 25 mg succinate daily as noted. Outpatient follow-up with cardiology, patient will call her lacing operator for an Type II DM On metformin [employer] A1c well-controlled. BSG 87 No change in management at this time. Tolerating a diet with a good appetite at bedside. Do not think that hypoglycemia contributed to her presentation above (2) Diabetes mellitus, type 2: History of Present Illness Attending Physician: Lamin Orlando, DO History of Present Illness Sabiha is a pleasant 73-year-old female s/p left total knee arthroplasty who is seen at the bedside after an episode of suspected vasovagal syncope. She has a past medical history of PVCs on metoprolol, hypertension well-controlled, diabetes well-controlled on metformin, hyperlipidemia, and past history of breast cancer s/p right vasectomy. Sabiha reports that she was feeling very well this morning, was sitting in the bedside recliner chair and was having her IVs removed and was looking at the IVs when they were manipulated and had a feeling of lightheadedness that came on. She slowly lost consciousness and slumped forward, she did not have any shaking or tremoring observed. She was laid down on the bed and woke back up after approximately 30 seconds to 1 minute and was not confused or postictal. At time of bedside assessment she reports that she feels "great "and would like to go home. She notes she has had episodes of passing out when looking at blood in the past and knows she should not have looked at her IV when it was being removed based on her past experiences. She reports she did not have chest pain at any point as no chest pain TOW [employer]OR [employer]. She reports other than an episode of syncope when she cut the tips of her fingers in the past does not have a history of syncopal episodes. She does not have any history of strokes or cardiogenic syncope, or falls with facial injuries. At bedside she is able to stand sit and take a few steps without any lightheadedness or dizziness, she is normotensive with a heart rate of approximately 65 at the bedside. She reports that she is eating well with a good appetite, and is peeing normally this morning. No tobacco/alcohol use. She lives with her sister will be with her at home and can monitor. She reports she feels well and would like to prefer blood draws if possible. Denies fever, chills, sweats, pain, lightheadedness, dizziness at time of assessment. She did not receive any narcotics this morning. She did take her morning lisinopril/hydrochlorothiazide; metoprolol was held this morning for heart rate under 60. Medical History: Reviewed Medications: Reviewed Surgical History: Reviewed Family history: Reviewed Allergies: Reviewed Social History: Reviewed Code Status: Full Allergies Allergy/AdvReac Type Severity Reaction Status Date / Time naproxen Allergy Mild Rash Verified 05/19/23 07:52 adhesive AdvReac Mild Skin Verified 05/19/23 07:52 redness Home Medications Medication Instructions Recorded Confirmed Type cholecalciferol (vitamin D3) 25 1,000 units PO QAM 11/11/18 05/19/23 History mcg (1,000 unit) capsule cinnamon bark 500 mg capsule 500 mg PO QAM 12/01/18 05/19/23 History vit C,E,zinc,copper-ruhqx9g 250 1 cap PO BID 12/01/18 05/19/23 History mg-lutein 5 mg-zeaxanthin 1 mg capsule (Ocuvite Adult 50 Plus) blood sugar diagnostic (OneTouch #100 ea 12/03/18 05/12/23 Rx Ultra Blue Test Strip) dextran 70-hypromellose eye drops 1 drp OPR UD PRN Dry Eyes 12/08/18 05/19/23 History in a dropperette (Artificial Tears (PF) drops in a dropperette) multivitamin 1 tab PO QAM 12/08/18 05/19/23 History diphenhydramine HCl 25 mg tablet 25 mg PO UD PRN allergies 08/16/21 05/19/23 History (Benadryl Allergy) amoxicillin 500 mg tablet 2,000 mg (4 x 500 mg) PO ONCE PRN 12/26/21 05/19/23 Rx prophylaxis #4 tabs lisinopril 10 1 tab PO QAM #90 tabs 07/08/22 05/19/23 Rx mg-hydrochlorothiazide 12.5 mg tablet metformin 500 mg tablet 500 mg PO BID #180 tabs 07/08/22 05/19/23 Rx azelastine 137 mcg (0.1 %) nasal 2 spray intranasal BID PRN allergy 07/25/22 05/19/23 Rx spray aerosol symptoms #30 mL pravastatin 20 mg tablet 20 mg PO QPM #90 tabs 08/08/22 05/19/23 Rx metoprolol succinate 50 mg 50 mg PO QAM #90 tabs 11/07/22 05/19/23 Rx tablet,extended release 24 hr acetaminophen 500 mg tablet 500 mg PO Q6H PRN prn 04/23/23 05/19/23 History aspirin 81 mg tablet,delayed 81 mg PO BID 6 weeks #84 tabs 05/20/23 Rx release cefadroxil 500 mg capsule 500 mg PO BID 10 days #20 caps 05/20/23 Rx oxycodone 5 mg tablet 5 mg PO Q6 PRN pain #30 tabs 05/20/23 Rx Patient History Medical History Diabetes mellitus, type 2 NIDDM Frequent PVCs Reason for metoprolol, chronic palpitations, denies change or worsening Hearing deficit Right ear History of malignant neoplasm of right breast s/p surgery + chemo (2016)-limb restriction of right upper extremity Hyperlipidemia Hypertension controlled, stable per pt Limb alert care status RUE- r/t right mastectomy Macular pucker, left eye Postmenopausal Rosacea Skin cancer BCC Surgical History Family history of reaction to anesthesia Several family members: slow to wake History of anesthesia reaction Slow to wake History of breast biopsy History of cataract surgery 2022. bilateral (apr 04 left, apr 11 right eye) History of colonoscopy History of dilatation and curettage History of placement of ear tubes Right myringotomy tube (12/21/18): LMA#4 at [facility] [place] History of removal of Port-a-Cath 2016 History of surgical removal of skin lesion History of tonsillectomy and adenoidectomy S/P right mastectomy with lymph node removal Status post right knee replacement Right TKA (09/14/21): SAB at L3/4 x1 attempt + regional at [facility] [place] teeth extracted Family History Aunt Stroke maternal Diabetes maternal Father Lung cancer Family/Other Asthma maternal cousin FHx: deafness or hearing loss Environmental allergies Sinus disorder Hypertension Grandmother No problems noted. Mother Hypertension Myocardial infarction Unknown No problems noted. Grandmother (Maternal) Stroke Denies family history of Ovarian cancer Prostate cancer Breast cancer Colorectal cancer Social History Smoking Status: Never smoker Second Hand Exposure: No; Do You Dip or Chew Tobacco: No; Tobacco Cessation Education Requested by Patient: No Hx Alcohol Use: Yes (on holidays, very rare) Alcohol type: wine Hx Substance Use: No Preferred Language: Bulgarian Communication Ability: Effective Visual Impairment: No Limitations Hearing Ability: Normal Student Assistant Required: No Beliefs That Will Affect Care: None marital status: Single Current Living Situation: Alone current occupational status: retired 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 NAD. Cooperative. Follows commands, no acute distress. HEENT: Atraumatic, normocephalic. Vision and hearing grossly intact. Pulm: CTAB A&P. -wheezes, -rales, -rhonchi. Symmetrical chest rise. No increased work of breathing. No respiratory distress. Cardiac: RRR, -mrg. Radial pulses intact and symmetrical. Abdominal: Nontender, nondistended, soft. BS present. Extremities: Nursing Assoc strength, hip flexion 5/5 bilaterally without deficit. Left knee and postsurgical dressing/wrap, no evidence of sensory or vascular deficit or bleeding Results & Data Results & Data Vital Signs (Past 12 Hours) Vital Signs Temp Pulse Resp BP Pulse Ox O2 Del Method 05/20/23 11:48 63 18 111/68 96 Room Air 05/20/23 10:40 58 L 99/62 L 96 Room Air 05/20/23 10:33 58 L 86/55 L 94 Room Air 05/20/23 07:46 Room Air 05/20/23 07:37 36.4 C L 59 L 18 131/69 98 Room Air 05/20/23 03:00 36.3 C L 64 16 117/71 98 Room Air PG Care Time/CCT Total # of Minutes Spent Total Time Spent with Patient: Total time spent is greater than 50% in coordination of care (as documented) at patient's floor/unit and/or counseling patient: Coding Level of Care Code 20431 IN/OBS CONSULT LVL 4,60M Diagnoses Vasovagal syncope R55 Diabetes mellitus, type 2 E11.9
--- NOTE | 2023-05-20 15:08 | Electrocardiogram Report ---
Test Reason : Blood Pressure : / mmHG Vent. Rate : 065 BPM Atrial Rate : 065 BPM P-R Int : 160 ms QRS Dur : 090 ms QT Int : 424 ms P-R-T Axes : 045 -06 027 degrees QTc Int : 440 ms Sinus rhythm with occasional Premature ventricular complexes Left atrial enlargement Left ventricular hypertrophy Abnormal ECG When compared with ECG of 30-APR-2023 13:25, No significant change was found Confirmed by Josemanuel Coombs ([id number]) on 05/20/2023 3:08:10 PM Referred By: Lamin Orlando Confirmed By:Josemanuel Coombs
== END 2023-05-20 13:28 | disposition home health service (06) ==
LOC: 3E 07:16 → ASU 07:16